=== PATIENT | female | born 1955 | race Caucasian/White ===

== ENCOUNTER → 2017-01-05 | Outpatient (CLI) | payer OTHER ==
[~2017-01-05] MED LIST: ADVIL LIQUI-GE200 MG; ANASTROZOLE1 M1 PO; ARMOUR THYROID30 M1 PO; BACLOFEN10 MG PO; CALCIUM LACTAT650 MG PO; CARAFATE1 G1 PO; CIPROFLOXACIN250 MG PO; CLINDAMYCIN150 MG; CORDROL20 MG PO; LEVOFLOXACIN500 MG PO; LEXAPRO10 MG PO; LITHIUM CARBON150 MG PO; LITHIUM CARBON300 MG PO; LORAZEPAM0.5 MG; NEURONTIN300 MG PO; NEURONTIN600 MG PO; OMEPRAZOLE40 MG PO; OXYBUTYNIN10 MG PO; PRILOSEC20 MG PO; PROVENTIL0.09 MG/A1 INH; PROVENTIL0.09 MG/AC IH; ROBITUSSIN AC 10 MG/ PO; SINGULAIR10 MG PO; ZOLOFT100 MG PO
[2017-01-05 13:19] LABS: BASO % 0.4 % (0.0-1.0); EOS # 0.1 10*3/uL (0.0-0.4); EOS % 1.9 % (1.0-4.0); HEMATOCRIT 39.4 % (37.0-47.0); HEMOGLOBIN 12.3 g/dl (12.0-16.0); LYMPH # 1.4 10*3/uL (1.3-4.4); LYMPH % 20.9 % (27.0-41.0); MEAN CELL VOLUME 87.2 fl (81.0-99.0); MEAN CORPUSCULAR HGB 27.2 pg (27.0-31.0); MEAN CORPUSCULAR HGB CONC 31.2 g/dl (33.0-37.0); MEAN PLATELET VOLUME 9.5 fl (9.6-12.3); MONO # 0.5 10*3/uL (0.1-1.0); MONO % 6.7 % (3.0-9.0); NEUT # 4.8 10*3/uL (2.3-7.9); NEUT % 69.5 % (47.0-73.0); PLATELET COUNT AUTOMATED 298 10*3/uL (130-400); RED BLOOD COUNT 4.52 10*6/uL (4.10-5.10); RED CELL DISTRI WIDTH 13.8 % (0-14.5); WHITE BLOOD COUNT 6.9 10*3/uL (4.8-10.8)
== END | disposition home or self-care (01) ==
LOC: LAB 12:48
PROVIDERS: Family Medicine
DX: R05 Cough (principal); Z87.09 Personal history of other diseases of the respiratory system

== ENCOUNTER → 2017-06-21 | Outpatient (CLI) | payer OTHER | LOC: US 11:41 | DX: N32.89 Other specified disorders of bladder (principal); R11.2 Nausea with vomiting, unspecified; K59.00 Constipation, unspecified; Z85.3 Personal history of malignant neoplasm of breast; Z90.13 Acquired absence of bilateral breasts and nipples ==

== ENCOUNTER → 2018-02-07 | Outpatient (CLI) | payer OTHER ==
[2018-02-07 12:15] LABS: BASO % 0.4 % (0.0-1.0); EOS # 0.1 10*3/uL (0.0-0.4); EOS % 2.1 % (1.0-4.0); HEMATOCRIT 33.5 % (37.0-47.0); HEMOGLOBIN 9.6 g/dl (12.0-16.0); LYMPH # 0.8 10*3/uL (1.3-4.4); LYMPH % 16.4 % (27.0-41.0); MEAN CELL VOLUME 79.6 fl (81.0-99.0); MEAN CORPUSCULAR HGB 22.8 pg (27.0-31.0); MEAN CORPUSCULAR HGB CONC 28.7 g/dl (33.0-37.0); MEAN PLATELET VOLUME 9.8 fl (9.6-12.3); MONO # 0.4 10*3/uL (0.1-1.0); MONO % 7.3 % (3.0-9.0); NEUT # 3.5 10*3/uL (2.3-7.9); NEUT % 73.4 % (47.0-73.0); PLATELET COUNT AUTOMATED 307 10*3/uL (130-400); RED BLOOD COUNT 4.21 10*6/uL (4.10-5.10); RED CELL DISTRI WIDTH 16.8 % (0-14.5); WHITE BLOOD COUNT 4.8 10*3/uL (4.8-10.8)
[2018-02-07 12:28] LABS: BILIRUBIN, DIRECT < 0.1 mg/dL (0.0-0.2); BUN 7 mg/dl (7-24); CHLORIDE 112 mmol/L (98-107); CHOLESTEROL 237 mg/dL (<200); CREATININE 0.87 mg/dL (0.55-1.02); POTASSIUM 3.7 mmol/L (3.5-5.1); SGOT/AST 10 IU/L (3-35); SGPT/ALT 14 U/L (12-78); SODIUM 142 mmol/L (136-145); THYROXINE (T4) TOTAL 9.8 ug/dl (4.8-13.9); TOTAL PROTEIN 7.7 gm/dL (6.4-8.2); TRIGLYCERIDES 201 mg/dl (<150); VLDL CHOLESTEROL 40 mg/dL (6-40)
[2018-02-07 12:38] LABS: ALKALINE PHOSPHATASE 88 U/L (45-117); HDL CHOLESTEROL 61 mg/dl (40-60); LDL CHOLESTEROL 136 mg/dL (9-159)
== END | disposition home or self-care (01) ==
LOC: RAD 11:00 → LAB 11:04
PROVIDERS: Family Medicine
DX: E03.9 Hypothyroidism, unspecified (principal); R07.9 Chest pain, unspecified; M81.0 Age-related osteoporosis without current pathological fracture; R10.9 Unspecified abdominal pain; R42 Dizziness and giddiness

== ENCOUNTER → 2018-05-26 | Day surgery (SDC) | payer OTHER ==
[~2018-05-26] VITALS: Ht 177.8 cm; Wt 58.5 kg
[~2018-05-26] MED LIST changes: +BACLOFEN5 MG PO
--- NOTE | ~2018-05-26 | PROC NOTE ---
[place], [place] PROCEDURE NOTE NAME: MILAN CUNNINGHAM [facility] #: [id number] UNIT #: [id number] ROOM: DOCTOR: NETO HOLBROOK MD BIRTHDATE: [birth year] DOS: PROCEDURES: 1. Esophagogastroduodenoscopy and biopsy. 2. Colonoscopy and polypectomy. INDICATIONS: History of Zaidi's and history of colon polyps and anemia. An informed consent was obtained from the patient after indication of procedures, the alternatives and potential complications were explained to her. PROCEDURE MEDICATION: Sedation was administered by Anesthesiology Department. Scope used for upper endoscopy, Olympus diagnostic adult upper endoscope GIF-180, depth of insertion was to the descending duodenum. With the colonoscopy, the scope used was Olympus pediatric colonoscope variable stiffness GIF-180, depth of insertion was to the cecum, which was identified by the usual landmarks, the appendiceal orifice, ileocecal valve and triangular fold, in addition to transillumination in the right lower quadrant. FINDINGS: After adequate sedation, the patient was placed in left lateral decubitus position. Upper endoscopy was performed first. Scope was introduced under direct visualization through the upper esophageal sphincter into the esophagus. 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 Multiple biopsies obtained from the 27 and 29 cm. A hiatal hernia extended from 29-35 cm. The stomach was then intubated. Gastric mucosa inspected. No abnormalities were seen. No discrete ulcers or active bleeding. Retroflexed views in the fundus showed a grade 2 sliding hiatal hernia. The pylorus was intubated easily. The duodenal bulb and descending duodenum were within normal range. Scope was then withdrawn after the stomach was decompressed. We then proceeded with the colonoscopy. Rectal examination showed diminished sphincter tone and no external hemorrhoids. Scope was introduced into the rectum, then advanced to cecum with marked difficulty due to looping in the left colon and the presence of suboptimal prep in the left colon. A 1.5 cm pedunculated polyp was identified in the mid transverse colon. The polyp was removed with a hot snare and recovered. The remaining colon mucosa appeared otherwise normal with no evidence of diverticula or other polyps or obstructing lesions, we could have missed small lesions due to the suboptimal prep. Retroflexed views in the rectum showed grade 1 internal hemorrhoids. The scope was then withdrawn after the rectum was decompressed. The patient tolerated the procedures well. IMPRESSION: 1. 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 2. Hiatal hernia. 3. Transverse colon polyp, removed. 4. Suboptimal prep in the left colon. 5. Internal hemorrhoids. PLAN: We will review the histopathology and SANG test results and treat the [place], [place] PROCEDURE NOTE [facility] [id number] UN[facility] #: [id number] ROOM: DOCTOR: NETO HOLBROOK MD BIRTHDATE: [birth year] patient accordingly. The patient was instructed to avoid aspirin and NSAIDs for the next 10 days. Office followup will be scheduled in 2-3 weeks. NETO HOLBROOK MD CM:PROCNOTE:PROCEDURE NOTE [id number] NETO HOLBROOK MD
[2018-05-26 08:38] VITALS: BP 127/68
[2018-05-26 09:23] VITALS: BP 99/50
[2018-05-26 09:40] VITALS: BP 105/55
[2018-05-26 09:55] VITALS: BP 108/54
== END | disposition home or self-care (01) ==
LOC: SDC 04-10 12:30
DX: D12.3 Benign neoplasm of transverse colon (principal); K56.2 Volvulus; K64.0 First degree hemorrhoids; K31.7 Polyp of stomach and duodenum; K29.70 Gastritis, unspecified, without bleeding; K44.9 Diaphragmatic hernia without obstruction or gangrene; E07.9 Disorder of thyroid, unspecified; E78.00 Pure hypercholesterolemia, unspecified; K21.9 Gastro-esophageal reflux disease without esophagitis; J44.9 Chronic obstructive pulmonary disease, unspecified; G80.9 Cerebral palsy, unspecified; F41.8 Other specified anxiety disorders; M19.90 Unspecified osteoarthritis, unspecified site; Z85.3 Personal history of malignant neoplasm of breast; Z86.010 Personal history of colon polyps; Z96.652 Presence of left artificial knee joint; Z98.890 Other specified postprocedural states; Z79.899 Other long term (current) drug therapy; Z91.013 Allergy to seafood; Z91.012 Allergy to eggs; Z91.018 Allergy to other foods; Z88.0 Allergy status to penicillin; Z88.8 Allergy status to other drugs, medicaments and biological substances; Z88.1 Allergy status to other antibiotic agents; Z91.041 Radiographic dye allergy status; Z80.0 Family history of malignant neoplasm of digestive organs

== ENCOUNTER → 2018-08-28 | Outpatient (CLI) | payer OTHER ==
[2018-08-28 16:17] LABS: BASO # 0.1 10*3/uL (0.0-0.1); BASO % 0.8 % (0.0-1.0); EOS # 0.1 10*3/uL (0.0-0.4); HEMATOCRIT 35.7 % (37.0-47.0); HEMOGLOBIN 10.7 g/dl (12.0-16.0); LYMPH # 1.3 10*3/uL (1.3-4.4); LYMPH % 21.5 % (27.0-41.0); MEAN CORPUSCULAR HGB 24.3 pg (27.0-31.0); MEAN PLATELET VOLUME 9.3 fl (9.6-12.3); MONO # 0.5 10*3/uL (0.1-1.0); MONO % 7.8 % (3.0-9.0); NEUT # 4.1 10*3/uL (2.3-7.9); NEUT % 67.6 % (47.0-73.0); PLATELET COUNT AUTOMATED 314 10*3/uL (130-400); RED BLOOD COUNT 4.41 10*6/uL (4.10-5.10); RED CELL DISTRI WIDTH 15.5 % (0-14.5)
[2018-08-28 16:45] LABS: ALBUMIN 3.9 gm/dl (3.1-4.5); ALKALINE PHOSPHATASE 80 U/L (45-117); BILIRUBIN, DIRECT < 0.1 mg/dL (0.0-0.2); BUN 14 mg/dl (7-24); CHLORIDE 111 mmol/L (98-107); CREATININE 0.91 mg/dL (0.55-1.02); IRON 22 ug/dL (50-170); POTASSIUM 4.2 mmol/L (3.5-5.1); SGOT/AST 13 IU/L (3-35); SGPT/ALT 16 U/L (12-78); SODIUM 142 mmol/L (136-145); THYROXINE (T4) TOTAL 8.6 ug/dl (4.8-13.9); TOTAL IRON BINDING CAPACITY 517 ug/dl (250-450); TOTAL PROTEIN 7.6 gm/dL (6.4-8.2)
[2018-08-28 16:50] LABS: THYROID STIM HORMONE (HS) 0.439 uIU/ml (0.358-4.75)
[2018-08-28 16:57] LABS: FERRITIN 8.7 ng/mL (10.0-291.0); VITAMIN D, 25-HYDROXY 16.9 ng/mL (30-100)
[2018-08-29 07:10] LABS: FREE T3 010389 3.1 pg/mL (2.0-4.4)
== END | disposition home or self-care (01) ==
LOC: LAB 15:39
PROVIDERS: Family Medicine
DX: E03.9 Hypothyroidism, unspecified (principal); E55.9 Vitamin D deficiency, unspecified; D64.9 Anemia, unspecified

== ENCOUNTER → 2019-01-18 | Outpatient (CLI) | payer OTHER ==
[~2019-01-18] MED LIST changes: +CIPRO500 MG PO; +PHENERGAN25 M3 PO
[2019-01-18 12:44] LABS: CHLORIDE 109 mmol/L (98-107); POTASSIUM 3.9 mmol/L (3.5-5.1); SODIUM 142 mmol/L (136-145)
[2019-01-18 12:49] LABS: BASO % 0.8 % (0.0-1.0); EOS # 0.1 10*3/uL (0.0-0.4); EOS % 1.7 % (1.0-4.0); HEMATOCRIT 41.1 % (37.0-47.0); HEMOGLOBIN 13.2 g/dl (12.0-16.0); LYMPH # 1.2 10*3/uL (1.3-4.4); LYMPH % 22.6 % (27.0-41.0); MEAN CELL VOLUME 94.7 fl (81.0-99.0); MEAN CORPUSCULAR HGB 30.4 pg (27.0-31.0); MEAN CORPUSCULAR HGB CONC 32.1 g/dl (33.0-37.0); MEAN PLATELET VOLUME 9.6 fl (9.6-12.3); MONO # 0.3 10*3/uL (0.1-1.0); MONO % 6.2 % (3.0-9.0); NEUT # 3.6 10*3/uL (2.3-7.9); NEUT % 68.5 % (47.0-73.0); PLATELET COUNT AUTOMATED 280 10*3/uL (130-400); RED BLOOD COUNT 4.34 10*6/uL (4.10-5.10); WHITE BLOOD COUNT 5.3 10*3/uL (4.8-10.8)
[2019-01-18 13:12] LABS: ALBUMIN 3.8 gm/dl (3.1-4.5); ALKALINE PHOSPHATASE 82 U/L (45-117); BILIRUBIN, DIRECT < 0.1 mg/dL (0.0-0.2); BUN 13 mg/dl (7-24); CHOLESTEROL 234 mg/dL (<200); CREATININE 0.96 mg/dL (0.55-1.02); HDL CHOLESTEROL 70 mg/dl (40-60); IRON 52 ug/dL (50-170); LDL CHOLESTEROL 140 mg/dL (9-159); SGOT/AST 14 IU/L (3-35); SGPT/ALT 16 U/L (12-78); THYROXINE (T4) TOTAL 9.6 ug/dl (4.8-13.9); TOTAL IRON BINDING CAPACITY 397 ug/dl (250-450); TOTAL PROTEIN 7.5 gm/dL (6.4-8.2); TRIGLYCERIDES 119 mg/dl (<150); VLDL CHOLESTEROL 24 mg/dL (6-40)
== END | disposition home or self-care (01) ==
LOC: LAB 11:51
PROVIDERS: Family Medicine
DX: D64.9 Anemia, unspecified (principal); E03.9 Hypothyroidism, unspecified; E55.9 Vitamin D deficiency, unspecified

== ENCOUNTER → 2019-02-08 | Outpatient (CLI) | payer OTHER | END | disposition home or self-care (01) | LOC: RAD 01-26 13:30 | DX: Z13.820 Encounter for screening for osteoporosis (principal); R29.890 Loss of height; N95.9 Unspecified menopausal and perimenopausal disorder ==

== ENCOUNTER 2019-02-21 10:44 | Emergency (ER) | payer OTHER ==
[~2019-02-21] VITALS: Wt 57.2 kg
--- NOTE | ~2019-02-21 | EKG ---
[place], [place] ELECTROCARDIOGRAM REPORT NAME: MILAN CUNNINGHAM UNIT #: [id number] ROOM: DOCTOR: INDU DRAFT REPORT BIRTHDATE: [birth year] [facility] Test Date: 2019-02-21 Test Time: 11:23:58 Pat Name: MILAN CUNNINGHAM Department: Room: Gender: F Delivery Route Driver: : [id number] Requested By: DEMETRICE JAIME Order Number: [id number] Reading MD: Gokul Byrd Measurements Intervals [place] Rate: 73 P: 33 WY: 125 QRS: 19 QRSD: 104 T: 28 QT: 427 QTc: 471 Interpretive Statements Sinus rhythm Probable left ventricular hypertrophy Borderline T abnormalities, anterior leads No previous ECG available for comparison Electronically Signed On 02-22-2019 6:10:26 PDT by Gokul Byrd CM:EKGRPT:ELECTROCARDIOGRAM REPORT [id number] DEMETRICE NEELY DRAFT REPORT DEMETRICE JAIME DO
[~2019-02-21 10:44] MED LIST changes: -CIPRO500 MG PO; -PHENERGAN25 M3 PO
[2019-02-21 11:37] LABS: BASO % 0.6 % (0.0-1.0); EOS # 0.1 10*3/uL (0.0-0.4); HEMATOCRIT 37.7 % (37.0-47.0); HEMOGLOBIN 12.5 g/dl (12.0-16.0); LYMPH # 1.1 10*3/uL (1.3-4.4); LYMPH % 20.8 % (27.0-41.0); MEAN CELL VOLUME 92.6 fl (81.0-99.0); MEAN CORPUSCULAR HGB 30.7 pg (27.0-31.0); MEAN CORPUSCULAR HGB CONC 33.2 g/dl (33.0-37.0); MEAN PLATELET VOLUME 9.9 fl (9.6-12.3); MONO # 0.3 10*3/uL (0.1-1.0); MONO % 6.3 % (3.0-9.0); NEUT # 3.6 10*3/uL (2.3-7.9); NEUT % 71.1 % (47.0-73.0); PLATELET COUNT AUTOMATED 312 10*3/uL (130-400); RED BLOOD COUNT 4.07 10*6/uL (4.10-5.10); RED CELL DISTRI WIDTH 13.8 % (0-14.5); WHITE BLOOD COUNT 5.1 10*3/uL (4.8-10.8)
[2019-02-21 11:39] LABS: BILIRUBIN NEGATIVE (NEGATIVE); BLOOD NEGATIVE (NEGATIVE); CLARITY CLEAR (CLEAR); COLOR YELLOW (YELLOW); GLUCOSE NEGATIVE (NEGATIVE); KETONE TRACE (NEGATIVE); LEUKO ESTERASE 2+ (NEGATIVE); NITRITE POSITIVE (NEGATIVE); UROBILINOGEN 0.2 E.U./dl (0.2-1.0)
[2019-02-21 11:52] LABS: ALBUMIN 3.8 gm/dl (3.1-4.5); ALKALINE PHOSPHATASE 119 U/L (45-117); BUN 14 mg/dl (7-24); CHLORIDE 115 mmol/L (98-107); CREATININE 0.85 mg/dL (0.55-1.02); LIPASE 155 U/L (73-393); POTASSIUM 4.3 mmol/L (3.5-5.1); SGOT/AST 27 IU/L (3-35); SGPT/ALT 18 U/L (12-78); SODIUM 145 mmol/L (136-145); TOTAL PROTEIN 7.3 gm/dL (6.4-8.2)
[2019-02-21 12:00] LABS: ACT PARTIAL THROMBO TIME 26.6 SECONDS (20.0-32.1)
[2019-02-21 12:01] LABS: BACTERIA 3+; EPITHELIAL CELLS 0-2; WBC 21-30 wbc/hpf (0-5)
[2019-02-21 12:15] LABS: TROPONIN I < 0.015 ng/ml (<0.045)
[2019-02-21] MEDS ORDERED: PHENERGAN25 M3 PO (13:56)
[2019-02-21] MEDS ORDERED: CIPRO500 MG PO (13:56)
== END 2019-02-21 14:15 | disposition home or self-care (01) ==
LOC: ED 10:44
PROVIDERS: Emergency Medicine
DX: S30.0XXA Contusion of lower back and pelvis, initial encounter (principal); N39.0 Urinary tract infection, site not specified; R11.2 Nausea with vomiting, unspecified; J44.9 Chronic obstructive pulmonary disease, unspecified; K21.9 Gastro-esophageal reflux disease without esophagitis; E03.9 Hypothyroidism, unspecified; G62.9 Polyneuropathy, unspecified; Z88.0 Allergy status to penicillin; Z88.8 Allergy status to other drugs, medicaments and biological substances; Z91.041 Radiographic dye allergy status; Z91.013 Allergy to seafood; Z91.018 Allergy to other foods; Z91.012 Allergy to eggs; Z79.899 Other long term (current) drug therapy; Z98.890 Other specified postprocedural states; W18.11XA Fall from or off toilet without subsequent striking against object, initial encounter; Y93.89 Activity, other specified; Y92.091 Bathroom in other non-institutional residence as the place of occurrence of the external cause; Y99.8 Other external cause status

== ENCOUNTER → 2019-03-15 | Outpatient (CLI) | payer OTHER ==
[~2019-03-15] MED LIST changes: +CIPRO500 MG PO; +PHENERGAN25 M3 PO
== END | disposition home or self-care (01) ==
LOC: MRI 10:55
DX: S32.19XD Other fracture of sacrum, subsequent encounter for fracture with routine healing (principal); X58.XXXD Exposure to other specified factors, subsequent encounter

== ENCOUNTER → 2019-12-05 | Outpatient (CLI) | payer MEDICARE ==
[2019-12-05 12:09] LABS: BASO % 0.5 % (0.0-1.0); EOS # 0.2 10*3/uL (0.0-0.4); EOS % 2.5 % (1.0-4.0); HEMATOCRIT 37.3 % (37.0-47.0); LYMPH # 0.8 10*3/uL (1.3-4.4); LYMPH % 13.2 % (27.0-41.0); MEAN CELL VOLUME 93.5 fl (81.0-99.0); MEAN CORPUSCULAR HGB 29.3 pg (27.0-31.0); MEAN CORPUSCULAR HGB CONC 31.4 g/dl (33.0-37.0); MEAN PLATELET VOLUME 9.4 fl (9.6-12.3); MONO # 0.4 10*3/uL (0.1-1.0); MONO % 5.5 % (3.0-9.0); NEUT # 4.9 10*3/uL (2.3-7.9); NEUT % 78.1 % (47.0-73.0); PLATELET COUNT AUTOMATED 256 10*3/uL (130-400); RED BLOOD COUNT 3.99 10*6/uL (4.10-5.10); RED CELL DISTRI WIDTH 13.3 % (0-14.5); WHITE BLOOD COUNT 6.3 10*3/uL (4.8-10.8)
[2019-12-05 12:39] LABS: ALBUMIN 3.6 gm/dl (3.1-4.5); ALKALINE PHOSPHATASE 72 U/L (45-117); BILIRUBIN, DIRECT < 0.1 mg/dL (0.0-0.2); BUN 13 mg/dl (7-24); CHLORIDE 106 mmol/L (98-107); CREATININE 0.81 mg/dL (0.55-1.02); POTASSIUM 4.2 mmol/L (3.5-5.1); SGOT/AST 15 IU/L (3-35); SGPT/ALT 18 U/L (12-78); SODIUM 141 mmol/L (136-145); THYROXINE (T4) TOTAL 8.7 ug/dl (4.8-13.9); TOTAL PROTEIN 7.1 gm/dL (6.4-8.2)
[2019-12-05 12:47] LABS: THYROID STIM HORMONE (HS) 0.389 uIU/ml (0.358-4.75)
== END | disposition home or self-care (01) ==
LOC: LAB 11:40
PROVIDERS: Family Medicine
DX: S40.011A Contusion of right shoulder, initial encounter (principal); M47.812 Spondylosis without myelopathy or radiculopathy, cervical region; M48.02 Spinal stenosis, cervical region; M25.78 Osteophyte, vertebrae; M19.011 Primary osteoarthritis, right shoulder; M25.711 Osteophyte, right shoulder; E55.9 Vitamin D deficiency, unspecified; R53.83 Other fatigue; E78.5 Hyperlipidemia, unspecified; W19.XXXA Unspecified fall, initial encounter; Y93.89 Activity, other specified; Y92.89 Other specified places as the place of occurrence of the external cause; Y99.8 Other external cause status

== ENCOUNTER 2020-03-06 11:34 | Inpatient (IN) | payer OTHER ==
[~2020-03-06] VITALS: Ht 149.9 cm; Wt 53.1 kg
[2020-03-06 11:34] VITALS: BP 144/79
[~2020-03-06 11:34] MED LIST changes: +PROVENTIL HFA6.7 GM INH; -PROVENTIL0.09 MG/A1 INH; +SINGULAIR10 M1 PO; -SINGULAIR10 MG PO
[2020-03-06 12:24] LABS: BASO % 0.4 % (0.0-1.0); EOS % 0.7 % (1.0-4.0); LYMPH # 0.5 10*3/uL (1.3-4.4); MEAN CELL VOLUME 82.9 fl (81.0-99.0); MEAN CORPUSCULAR HGB 24.6 pg (27.0-31.0); MEAN CORPUSCULAR HGB CONC 29.7 g/dl (33.0-37.0); MEAN PLATELET VOLUME 9.3 fl (9.6-12.3); MONO # 0.2 10*3/uL (0.1-1.0); MONO % 4.4 % (3.0-9.0); NEUT # 3.8 10*3/uL (2.3-7.9); NEUT % 84.3 % (47.0-73.0); PLATELET COUNT AUTOMATED 251 10*3/uL (130-400); RED BLOOD COUNT 3.74 10*6/uL (4.10-5.10); WHITE BLOOD COUNT 4.5 10*3/uL (4.8-10.8)
[2020-03-06 12:36] LABS: ACT PARTIAL THROMBO TIME 26.2 SECONDS (20.0-32.1)
[2020-03-06 12:39] LABS: ALBUMIN 3.4 gm/dl (3.1-4.5); ALKALINE PHOSPHATASE 70 U/L (45-117); BUN 21 mg/dl (7-24); CHLORIDE 110 mmol/L (98-107); CREATININE 1.33 mg/dL (0.55-1.02); POTASSIUM 3.6 mmol/L (3.5-5.1); SGOT/AST 14 IU/L (3-35); SGPT/ALT 14 U/L (12-78); SODIUM 142 mmol/L (136-145); TOTAL PROTEIN 7.3 gm/dL (6.4-8.2)
[2020-03-06 12:40] VITALS: BP 150/75
[2020-03-06 12:44] LABS: ETHYL ALCOHOL < 3.0 mg/dl (<3)
[2020-03-06 14:29] LABS: BILIRUBIN NEGATIVE (NEGATIVE); CLARITY SL CLOUDY (CLEAR); COLOR YELLOW (YELLOW); GLUCOSE NEGATIVE (NEGATIVE); KETONE NEGATIVE (NEGATIVE)
[2020-03-06 14:30] LABS: BACTERIA 2+; BLOOD 1+ (NEGATIVE); LEUKO ESTERASE 2+ (NEGATIVE); NITRITE NEGATIVE (NEGATIVE); PH 7.5 (5.0-9.0); SPECIFIC GRAVITY 1.005 (1.005-1.030); UROBILINOGEN 0.2 E.U./dl (0.2-1.0); WBC TNTC wbc/hpf (0-5)
[2020-03-06 16:30] VITALS: BP 118/62
[2020-03-06 20:00] VITALS: BP 110/49
[2020-03-07] VITALS: BP 126/78
[2020-03-07 06:52] LABS: BASO % 0.3 % (0.0-1.0); EOS # 0.1 10*3/uL (0.0-0.4); EOS % 2.5 % (1.0-4.0); HEMATOCRIT 30.4 % (37.0-47.0); LYMPH % 28.4 % (27.0-41.0); MEAN CORPUSCULAR HGB 25.1 pg (27.0-31.0); MEAN CORPUSCULAR HGB CONC 28.9 g/dl (33.0-37.0); MEAN PLATELET VOLUME 9.9 fl (9.6-12.3); MONO # 0.3 10*3/uL (0.1-1.0); MONO % 9.1 % (3.0-9.0); NEUT # 2.2 10*3/uL (2.3-7.9); NEUT % 59.1 % (47.0-73.0); PLATELET COUNT AUTOMATED 233 10*3/uL (130-400); RED CELL DISTRI WIDTH 14.4 % (0-14.5); WHITE BLOOD COUNT 3.6 10*3/uL (4.8-10.8)
[2020-03-07 06:56] LABS: MEAN CELL VOLUME 86.9 fl (81.0-99.0)
[2020-03-07 06:58] LABS: ALBUMIN 2.7 gm/dl (3.1-4.5); CREATININE 1.17 mg/dL (0.55-1.02); POTASSIUM 3.6 mmol/L (3.5-5.1); TOTAL PROTEIN 6.1 gm/dL (6.4-8.2)
[2020-03-07 06:59] LABS: FREE T4 1.02 ng/dl (0.76-1.46)
[2020-03-07 07:03] LABS: THYROID STIM HORMONE (HS) 1.13 uIU/ml (0.358-4.75)
[2020-03-07 08:00] VITALS: BP 126/61
[2020-03-07 09:30] LABS: VITAMIN D, 25-HYDROXY 28.6 ng/mL (30-100)
[2020-03-07 12:00] VITALS: BP 114/57
[2020-03-07 16:00] VITALS: BP 104/48
[2020-03-07 20:00] VITALS: BP 109/54
[2020-03-08] VITALS: BP 121/61
[2020-03-08 06:13] LABS: BASO % 0.3 % (0.0-1.0); EOS # 0.1 10*3/uL (0.0-0.4); EOS % 3.1 % (1.0-4.0); HEMATOCRIT 27.5 % (37.0-47.0); LYMPH # 0.9 10*3/uL (1.3-4.4); LYMPH % 24.8 % (27.0-41.0); MEAN CELL VOLUME 85.7 fl (81.0-99.0); MEAN CORPUSCULAR HGB 24.6 pg (27.0-31.0); MEAN CORPUSCULAR HGB CONC 28.7 g/dl (33.0-37.0); MEAN PLATELET VOLUME 9.9 fl (9.6-12.3); MONO # 0.4 10*3/uL (0.1-1.0); NEUT # 2.2 10*3/uL (2.3-7.9); NEUT % 61.5 % (47.0-73.0); PLATELET COUNT AUTOMATED 221 10*3/uL (130-400); RED BLOOD COUNT 3.21 10*6/uL (4.10-5.10); RED CELL DISTRI WIDTH 14.6 % (0-14.5); WHITE BLOOD COUNT 3.5 10*3/uL (4.8-10.8)
[2020-03-08 06:14] LABS: BUN 16 mg/dl (7-24); CHLORIDE 117 mmol/L (98-107); CREATININE 1.09 mg/dL (0.55-1.02); SODIUM 145 mmol/L (136-145)
[2020-03-08 08:00] VITALS: BP 120/72
[2020-03-08] MEDS ORDERED: LEVAQUIN500 M2 PO ×2 (12:01→12:03)
== END 2020-03-08 14:28 | disposition home health service (06) | DRG 689 ==
LOC: ED 11:34 → EDHOLD 14:45 → 5E 14:45
PROVIDERS: Emergency Medicine; Hospitalist; Internal Medicine; ADMIT Internal Medicine
DX: N30.01 Acute cystitis with hematuria (principal); N17.0 Acute kidney failure with tubular necrosis; E44.0 Moderate protein-calorie malnutrition; F31.5 Bipolar disorder, current episode depressed, severe, with psychotic features; Z68.1 Body mass index [BMI] 19.9 or less, adult; E87.8 Other disorders of electrolyte and fluid balance, not elsewhere classified; J45.909 Unspecified asthma, uncomplicated; E03.9 Hypothyroidism, unspecified; K21.9 Gastro-esophageal reflux disease without esophagitis; D64.9 Anemia, unspecified; R73.9 Hyperglycemia, unspecified; G80.4 Ataxic cerebral palsy; E86.0 Dehydration; R33.9 Retention of urine, unspecified; B95.4 Other streptococcus as the cause of diseases classified elsewhere; G62.9 Polyneuropathy, unspecified; F43.10 Post-traumatic stress disorder, unspecified; Z91.041 Radiographic dye allergy status; Z91.012 Allergy to eggs; Z88.0 Allergy status to penicillin; Z91.013 Allergy to seafood; J44.9 Chronic obstructive pulmonary disease, unspecified; W18.30XA Fall on same level, unspecified, initial encounter; Y93.89 Activity, other specified; Y92.89 Other specified places as the place of occurrence of the external cause; Y99.8 Other external cause status

== ENCOUNTER 2020-03-08 13:14 | Inpatient (IN) | payer OTHER ==
[~2020-03-08] VITALS: Ht 149.8 cm; Wt 53.1 kg
[~2020-03-08 13:14] MED LIST changes: +LEVAQUIN500 M2 PO
--- NOTE | 2020-03-08 14:30 | NUR ---
MILAN CUNNINGHAM a 64 year old F admitted via wheel chair from the ADMITTING as a voluntary admission. Arrived on unit at 1430. ALLERGIES: PCN, Z-PACK, IODINE, SHELL FISH, EGGS, MUSHROOMS AND STRAWBERRIES. Vital signs are: 97.7-100-16 127/72. The client signed the following forms with stated understanding: Authorization For The Release of Medical Information, Clothing List, Consent to Voluntary Admission and Hospitalization, Consent and Release Forms/Receipt of Rights, Acknowledgement of Advance Directive Information, Behavioral Health Consent Form, and Informed Consent of Medications. Admitted under the services of [facility]. A search was conducted and hazardous articles were removed. Client was oriented to the unit. BULL BRAVO
[2020-03-08 14:45] VITALS: BP 127/72
--- NOTE | 2020-03-08 15:01 | NUR ---
SPOKE TO , MADE AWARE OF NEW CONSULT FOR MEDICAL MANAGEMENT.
--- NOTE | 2020-03-08 15:25 | NUR ---
NASAL SWAB SPECIMEN COLLECTED FOR COVID 19 AND SENT TO LAB.
--- NOTE | 2020-03-08 16:16 | NUR ---
Shift chart check completed.
--- NOTE | 2020-03-08 16:16 | NUR ---
Shift chart check completed.
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
--- NOTE | 2020-03-08 19:48 | NUR ---
NOTIFIED BULL CHAVEZ, SENIOR RESEARCH PROJECT MANAGER OF ADMISSION, VOICE MAILL LEFT.
[2020-03-08 19:50] VITALS: BP 119/63
--- NOTE | 2020-03-08 21:46 | NUR ---
24 HR chart check completed.
--- NOTE | 2020-03-08 21:55 | NUR ---
PT HAS SAT IN THE DINING ROOM THIS EVENING WATCHING TV & TALKING TO ANOTHER PEER. INTERACTIONS HAVE BEEN PLEASANT & POLITE. STATED THAT SHE IS "FEELING BETTER. ALERT & ORIENTED X 4. NO DELUSIONS VOICED. STATED THE AUDITORY & VISUAL HALLUCINATIONS HAVE DECREASED GREATLY & SHE DID NOT DESCRIBE ANY. STATED, "I THINK THEY ARE FROM THE UTI & ITS GETTING BETTER WITH THE MEDICINE THEY PUT ME ON". NO SIGNS/SYMPTOMS OF SENSORY DISTURBANCE NOTED. ATE SNACK. COMPLIANT WITH ALL MEDS. C/O CONSTIPATION & MEDICATED WITH MOM 30 CC @ 2054. MOVES ABOUT THE UNIT INDEPENDENTLY VIA WHEEL CHAIR. DOES REQUIRE 2 STAFF ASSIST FOR TRANSFERS & ASSISTS WITH TOILETING BY HOLDING HAND RAIL.
--- NOTE | 2020-03-08 23:35 | NUR ---
DR BILLS ON UNIT TO SEE PT FOR MEDICAL CONSULT.
[2020-03-09 07:44] VITALS: BP 135/70
--- NOTE | 2020-03-09 09:45 | NUR ---
DR. JAIME ON UNIT TO ASSESS PT, UPDATE PROVIDED.
--- NOTE | 2020-03-09 12:35 | NUR ---
A&O X4. MOOD IS HOPELESS/HELPLESS. CALM AND INTERACTIVE BEHAVIOR. DENIESS HALLUCINATIONS AND DELUSIONS. DENIES SI/HI. PT STATES SHE IS "A LITTLE" SAD AND DEPRESSED. ENCOURAGED PT TO DO MUCH FOR HERSELF SINCE SHE IS FROM HOME. PT STATED SHE TOILETS HERSELF AT HOME. PT ASKED IF A STAFF MEMBER WANTED TO WIPE HER AFTER TOILETING. AGAIN ENCOURAGED PT TO COMPLETE ALL THE ADLS THAT SHE CAN TO KEEP HER STRENGTH UP. PT REQUIRES MUCH ENCOURAGEMENT TO DO DO SO. INAPPROPRIATE LAUGHTER NOTED DURING TOILETING. MOM PROVIDED TO THE PT SHE STATED SHE IS HAVING A HARD TIME GETTING HER BM OUT. PT STATED "OH MAN I HAVE HEARTBURN THAT HASNT MADE IT TO MY ANUS YET" IN AN INAPPROPRIATE VOICE. PT ENCOURAGED NOT TO FORCE HERSELF TO HAVE A BOWEL MOVEMENT. EDUCATED ON POSSIBLE CONSEQUENCES OF FORCING A BOWEL MOVEMENT. MEDICATION COMPLIANT WITHOUT DIFFICULTY. WILL CONTINUE TO ENCOURAGE PT TO COMPLETE ADLS FOR HERSELF AND WILL MONITOR BEHAVIORS WITH Q15 MINUTE SAFETY CHECKS. SEE [facility] FLOWSHEET FOR SPECIFIC MONITORING.
--- NOTE | 2020-03-09 14:25 | NUR ---
PSYCHOSOCIAL HX COMPLETED THIS DATE.
--- NOTE | 2020-03-09 19:53 | NUR ---
24 HR chart check completed.
[2020-03-09 20:00] VITALS: BP 128/68
--- NOTE | 2020-03-09 21:41 | NUR ---
PT HAS SAT IN THE DINING ROOM THIS EVENING WATCHING TV & TALKING TO ANOTHER PEER & LAUGHING APPROPRIATELY. INTERACTIONS HAVE BEEN PLEASANT & POLITE. CONTINUES TO STATED THAT SHE IS "FEELING BETTER." ALERT & ORIENTED X 4. NO DELUSIONS VOICED. DENIES ANY SENSORY DISTURBANCE & NONE HAS BEEN NOTED. ATE SNACK. COMPLIANT WITH ALL MEDS. MOVES ABOUT THE UNIT INDEPENDENTLY VIA WHEEL CHAIR. DOES REQUIRE 2 STAFF ASSIST FOR TRANSFERS & ASSISTS WITH TOILETING. HAS ATTEMPTED TO HELP HERSELF MORE WITH TOILETING & TRANSFERS. HAS BEEN CONTINENT OF BLADDER THUS FAR.
--- NOTE | 2020-03-10 06:29 | NUR ---
PT HAS SLEPT PAST 2200 WITH 2 BRIEF AWAKENINGS DUE TO BEING INCONTINENT OF URINE.
[2020-03-10 07:20] VITALS: BP 131/66
--- NOTE | 2020-03-10 07:50 | NUR ---
PHYSICAL THERAPY Screen and PT orders received, will follow. Thank you. Clark Barcenas SPT Bethany Hawk PT
--- NOTE | 2020-03-10 07:53 | NUR ---
Occupational therapy order and nursing screen received. Will follow up with patient for completion of an OT evaluation. Thank you. Velma De Leon, OTR/L
--- NOTE | 2020-03-10 07:56 | NUR ---
A&O X4. STABLE MOOD AT THIS TIME. ORGANIZED THOUGHTS. INTERACTIVE WITH STAFF AND PEERS. DENIES HALLUCINATIONS/DELUSIONS. DENIES SI/HI. PT STATED SHE FEELS BETTER THAN SHE DID AT ADMISSION. NO COMPLAINTS NTOED AT THIS TIME. MEDICATION COMPLIANT WITHOUT DIFFICULTY. MEDICATION EDUCATION PROVIDED. NO C/O PAIN AT THIS TIME. RESPIRATIONS EASY NON LABORED. Q 15 MINUTE SAFETY CHECKS MAINTAINED. 1:1 PROVIDED FOR THERAPEUTIC COMMUNICATION. SEE [facility] FLOWSHEET FOR SPECIFIC MONITORING. WILL CONTINUE TO MONITOR BEHAVIORS WITH Q15 MINUTE SAFETY CHECKS. CONTINUE TO ENCOURAGE PT TO COMPLETE ADLS WHILE HERE.
--- NOTE | 2020-03-10 08:50 | NUR ---
PHYSICAL THERAPY Physical Therapy evaluation completed on 3N with full evaluation to follow. Moderate complexity skilled PT evaluation per chart review and evaluation, 00500. Recommend physical therapy per plan of care and SNF upon discharge. Thank you for this referral. Alexandra Plata,PT,DPT
--- NOTE | 2020-03-10 08:50 | NUR ---
Occupational Therapy evaluation completed on three with full evaluation to follow. Recommend occupational therapy per plan of care and SNF upon discharge. Thank you for this referral. Velma De Leon OTR/L
--- NOTE | 2020-03-10 11:15 | NUR ---
Faxed admission clinical to [facility], awaiting response.
--- NOTE | 2020-03-10 12:22 | NUR ---
Treatment team meeting held this AM with Dr Chavira, MEDICAL MANAGEMENT SPECIALIST, RN, and this TELEX OPERATOR-S. Discussed pt's status. Tentative discharge day will be at end of the week. Pt to return home where she resides with her mother and brother.
--- NOTE | 2020-03-10 14:04 | NUR ---
SPEECH PATHOLOGY Clinical swallowing evaluation completed due to difficulty swallowing food. Medical history is significant for bipolar disorder, asthma, COPD, breast CA, CP, GERD, hypothyroid, neuropathy. Patient is ordered a regular diet and thin liquid. She reported difficulty swallowing dry food and occasionally coughing with water. She was seen this pm, alert, cooperative and aware of her deficits. Oral peripheral exam revealed presence of natural teeth. Lingual/labial and buccal skills were WNL in terms of strength, ROM and coordination. Volitional cough was weak. Patient was assessed with thin liquid and coarse solid. Patient tolerated solid with no overt difficulty. Patient took liquid by straw and was observed to cough with first sip only, however patient started to laugh before swallowing the liquid which may have led to coughing episode. Recommend patient remain on regular diet and liquid with use of safety precautions such as small bites/sips, eating slowly, limiting distractions when eating/drinking and taking breaks when eating if SOB as she reported this occurring at times. Patient and her nurse were educated on results and chace. and verbalized understanding. Follow up therapy will be conducted short term to ensure safe tolerance of diet and adherence to precautions. Refer to report in [employer] for further information. Thank you for this referral. KEELY GARVIN MSCCC-FABRIC CUTTER
--- NOTE | 2020-03-10 14:08 | NUR ---
Met with pt individually. Pt reports to feeling much better. Discussed discharge needs and the recommendation of SNF. Pt stated that she is not interested in a SNF but would like [facility] for PT/OT. Pt shared about living with her mom and brother and about her dog. Pt was appropriate in conversation. No hallucintions or delusions were observed by this senior copywriter.
--- NOTE | 2020-03-10 14:49 | NUR ---
PT SHOWERED TODAY WITH MAXIMUM ASSISTANCE. PT GIVEN SIMPLE INSTRUCTIONS FOR WASHING HAIR, WASHING OFF, DRYING OFF, GETTING DRESSED. PT GIVEN MANY PROMPTS ABOUT WASHING ALL OF HER HAIR AND NOT JUST THE TOP PORTION. PT UNABLE TO PUT SOCKS, UNDERPANTS, AND PANTS ON. PT UNABLE TO STAND UP BY SELF. PT GIVEN INSTRUCTIONS TO STAND TALL AND NOT DROP TO THE FLOOR, PT STATED "SOMETIMES I JUST DO." PT STATED AT HOME SHE DOES THESE THINGS BY HERSELF BUT IS UNABLE TO COMPLETE THEM HERE. PT STATED SHE LEANS ON THE SINK AND IF SHE FALLS SHE WILL JUST USE HER ARMS AND LIFT HERSELF BACK UP. PT SAID SHE FALLS OFTEN. WHEN PT WAS ASKED HOW OFTEN SHE BATHS HERSELF SHE STATED "WELL WITH ALL THE PEOPLE THAT LIVE IN THE HOUSE I GOT USE TO TAKING SHOWERS EVERY OTHER DAY".
--- NOTE | 2020-03-10 18:00 | NUR ---
PT TOILETED AT THIS TIME. PT NEEDED ENCOURAGEMENT AND MULTIPLE PROMPTS TO STAND UP STRAIGHT AND NOT FALL TO THE FLOOR. PT WAS A HEAVY 2 ASSIST AT THIS TIME. SPOKE TO PT AGAIN ABOUT SKILLED VERSUS HOME HEALTH. PT STATED SHE BELIEVES SHE NEEDS CORRECTION AT THIS TIME WELL.
--- NOTE | 2020-03-10 18:20 | NUR ---
DR GRIMES ON UNIT TO ASSESS PT.
--- NOTE | 2020-03-10 19:37 | NUR ---
24 HR chart check completed.
[2020-03-10 19:49] VITALS: BP 131/80
--- NOTE | 2020-03-10 22:03 | NUR ---
PT HAS SAT IN THE DINING ROOM THIS EVENING WATCHING TV. INTERACTIONS HAVE BEEN PLEASANT & POLITE. CONTINUES TO STATED THAT SHE IS "FEELING BETTER." ALERT & ORIENTED X 4. NO DELUSIONS VOICED. DENIES ANY SENSORY DISTURBANCE & NONE HAS BEEN NOTED. ATE SNACK. COMPLIANT WITH ALL MEDS. MOVES ABOUT UNIT INDEPENDENTLY VIA WHEEL CHAIR. DOES REQUIRE 2 STAFF ASSIST FOR TRANSFERS & ASSISTS WITH TOILETING. REQUIRES PROMPTS & REDIRECTION TO DO WHAT SHE CAN FOR HERSELF. CONTINENT OF BLADDER THUS FAR.
--- NOTE | 2020-03-11 06:02 | NUR ---
PT HAS SLEPT PAST 44 WITH BROKEN SLEEP. INCONTINENT OF URINE X 2. HAS SLEPT APPX 5 HOURS
[2020-03-11 07:36] VITALS: BP 129/70
--- NOTE | 2020-03-11 08:02 | NUR ---
Spoke with pt this AM again about discharge needs. Pt is now agreeable to a SNF prior to returning home. Pt's preference is [facility]. Pt requested that this editorial writer speak to pt's mother to further discuss SNF.
--- NOTE | 2020-03-11 08:04 | NUR ---
Phoned pt's mother Anju Collado for family meeting. Informed Anju that the recommendation is for pt to discharge to a SNF and that pt is willing to do so. Discussed this further. Anju also voiced agreement to this. Anju stated, "Anything that will help Felecia, I am for." Anju stated that they have a system at home that works. Anju denies difficulty in providing care for Felecia. Discussed pt's mental and behavioral status. Reviewed pt's current medications.
--- NOTE | 2020-03-11 08:07 | NUR ---
PASRR submitted to prepare for pt's discharge needs.
--- NOTE | 2020-03-11 08:16 | NUR ---
AEROSOL TX NOT DONE. HEART RATE 117-124, EKG ORDERED TO R/O A/FIB. DOCTOR AND RN NOTIFIED
--- NOTE | 2020-03-11 08:30 | NUR ---
Treatment Plan meeting was held this a.m. with GERSON Holland, RN, TOOL INSPECTOR-S and Ampoule Filler. Plan for discharge at the end of the week, Early next Week. PASRR submitted and Pending. Pt. requesting [facility] for [facility].
--- NOTE | 2020-03-11 10:40 | NUR ---
DR GRIMES AND TEAM ON UNIT TO ASSESS PT, UPDATE PROVIDED.
--- NOTE | 2020-03-11 10:55 | NUR ---
Referral faxed to [facility] Attn: Susan [phone].
--- NOTE | 2020-03-11 11:14 | NUR ---
Faxed continued review stay clinical to [facility], awaiting response.
--- NOTE | 2020-03-11 11:47 | NUR ---
Group therapy session this AM with discussion centering around happiness. Pt fully participated and voiced much interest in the topic. Pt was supportive of another patient in group. Handout was provided "What Happy People Know." Pt was appropriate in conversation and did not voice any hallucinations or delusions.
--- NOTE | 2020-03-11 12:22 | NUR ---
SPEECH PATHOLOGY Patient was seen for f/u treatment this date during lunchtime meal. Patient's tray consisted of a variety of food and liquid items. Patient fed herself. She displayed no overt difficulty tolerating any item. Intake was good. Patient reported no recent difficulty swallowing and her nurse confirmed this. Patient displayed good use of safe swallow precautions during the meal such as eating slowly, consuming small bites and sips and alternating consistencies. No SOB was noted or reported. Patient tolerates regular diet and thin liquid therefore it is recommended that she remain on this diet. Patient will be discharged from therapy at this time. Thank you for this referral. It has been a pleasure taking part in this patient's care. KEELY GARVIN MSCCC-HAM ROLLING MACHINE OPERATOR
--- NOTE | 2020-03-11 13:05 | NUR ---
OT NOTE Prior to coming to the floor spoke with pt's nurse and reported that therapy was coming to treat this pt, nurse gave approval. Pt was seen this P.M. 1:1 for 20 minute OT session with RIG SITE ENGINEER and nursing staff present for observation only. Upon arrival pt was sitting upright in the w/c in the dining york. Pt identified by name and and had complaints of pain her stomach which she was unable to describe or rate on 0-10 pain scale. Pt was taken out to the hallway where she completed sit to stand from chair level with Ciro X 2 and use of w/w for UE support. Challenged pt's static standing tolerance needed for increased I in self care tasks and functional transfers and pt was able to tolerate aprox 60 seconds before sitting due to fatigue. While standing pt soiled her depends and pants. Pt was taken to the bathroom where she completed sit to stand from chair level with Ciro X 2 followed by standing pivot from the w/c to the standard commode with modA. Pt's depends and pants were doffed with maxA. While standing during clothing management pt required mod-maxA due to retrograde posture and multiple LOB. Toilet hygiene completed with Ciro while seated. New depends and pants donned with maxA and transferred off standard commode with modA. Standing pivot completed from the standard commode to the w/c with modA. Pt was taken back out to the hallway where pt completed another sit to stand transfer from w/c level with Ciro X 2 and use of w/w for UE support. Again challenged pt's static standing tolerance which she was able to tolerate aprox 90 seconds this attempt. Pt was left sitting upright in the w/c in the dining york under [facility] staff supervision. Continue with rec D/C plan to SNF. ERIC Pacheco
--- NOTE | 2020-03-11 13:13 | NUR ---
PHYSICAL THERAPY TREATMENT TIME: OUT 1:08 PM 25 MINUTES Patient presented to therapy in the activity room and she was identified by name and on wristband. Patient gives informed consent for treatment. Patient has report of abdominal pain. Patient transferred sit t ostand out of wheelchair with MOD A X 1 with verbal cues for pushing off the W/C handles as she stood. Patient required verbal cues for locking knees into extension and upright posture. Patient ambulated 5' x 1 and theh had to sit in W/C. PATIENT HAD TO BE TAKEN TO HER ROOM ALONG WITH JYOTI RICO BECAUSE THE PATIENT ACCIDENTLY URINATED WHILE AMBULATING. This SIFTER OPERATOR assisted JYOTI RICO SHE CHANGED THE PATIENT'S CLOTHES. PATIENT STS OUT OF W/C MOD A X 2. PATIENT SPT TO COMMODE WITH MOD A X 2. PATIENT STS FROM COMMODE MOD A X 2 TO MAX A X 2. PATIENT THEN WAS WHELED OUT INTO HALLWAY WHERE SHE COMPLETED STS OUT OF W/C WITH MOD A X 2. PATIENT AMBULATED WITH WH WALKER 20' X 1 AND THEN HAD TO SIT DUE OT WEAKNESS IN LEs. PATIENT REQUIRED CONSTANT VERBAL CUES FOR UPRIGHT POSTURE, PUSHING DOWN ON WALKER, LOCKING KNEES INTO EXTENSION AND ADVANCING STEP-LENGTH. PATIENT STS AGAIN OUT OF W/C MOD A X 2. PATIENT AMBULATED 15' X 1 WITH WH WALKER AND THEN AGAIN HAD TO SIT IN W/C DUE TO FATIGUE AND WEAKNESS. PATIENT WAS LEFT IN ACTIVITY ROOM IN W/C WITH ONE RN PRESENT AND 2 OTHER PATIENTS. PATIENT WAS 1:1 WITH THIS SIFTER OPERATOR FOR 25 MINUTES TOTAL. YANNI ROSA SIFTER OPERATOR
--- NOTE | 2020-03-11 13:19 | NUR ---
SPOKE WITH DR BREWSTER AT [phone] RE: PT PREVIOUS 5 BREATHING TREATMENTS BEING HELD D/T ELEVATED HEART RATE, PER DR BREWSTER, SHE WILL ORDER THEM PRN AND WE CAN CALL IF NEEDED. ADVISED RESPIRATORY OF THE CHANGES. NO FURTHER ORDERS AT THIS TIME.
--- NOTE | 2020-03-11 15:27 | NUR ---
Clinical Documentation faxed to [facility] Attn: Susan.
--- NOTE | 2020-03-11 19:50 | NUR ---
24 HR chart check completed.
[2020-03-11 19:59] VITALS: BP 126/70
--- NOTE | 2020-03-11 21:38 | NUR ---
PT HAS SAT IN THE DINING ROOM TALKING TO ANOTHER FEMALE PEER. INTERACTIONS HAVE BEEN PLEASANT & POLITE. ALERT & ORIENTED X 4. NO DELUSIONS VOICED. DENIES ANY SENSORY DISTURBANCE & NONE HAS BEEN NOTED. ATE SNACK. COMPLIANT WITH ALL MEDS. MOVES ABOUT UNIT INDEPENDENTLY VIA WHEEL CHAIR. DOES REQUIRE 2 STAFF ASSIST FOR TRANSFERS & ASSISTS WITH TOILETING. REQUIRES PROMPTS & REDIRECTION TO DO WHAT SHE CAN FOR HERSELF.INCONTINENT OF BLADDER THUS FAR. SHOWERED THIS EVENING WITH 2 STAFF ASSISTS.
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
--- NOTE | 2020-03-12 05:43 | NUR ---
PT HAS SLEPT PAST 2099 WITH BROKEN SLEEP & 2 AWAKENINGS WHERE SHE WAS INCONTINENT OF URINE.
--- NOTE | 2020-03-12 07:05 | NUR ---
PHYSICAL THERAPY Patient seen this am for therapy visit and was sitting up in activity room w/c upon therapist arrival. Patient identified by name / and and was joined by Hellen SANCHES this morning for observation only. Patient voices no c/o's pain, however presented with increased B LE tightness. Patient performed seated B LE therex, all planes, x 10 reps each, AROM / AAROM, requiring v/c to reach full ROM during LAQ. Patient transfers sit to stand MIN A and ambulates with use of wh walker, CGA, 15'x 1, then additional 6' x 1, demonstrating uneven stride. Patient also demonstrated R foot drag, needing v/c for "marching" technique, including w/c follow secondary to quick onset of fatigue. Patient returned to her w/c in activity room and remained under [facility] staff Supervision, awaiting breakfast. Will continue per POC as tolerated, total treatment time 17 minutes. Garrett Collier, SPECIAL EDUCATION ASSOCIATE
[2020-03-12 07:53] VITALS: BP 114/71
--- NOTE | 2020-03-12 09:00 | NUR ---
Treatment Plan meeting was held this a.m. with Dr. Chavira via telephone, GERSON Holland RN, SPECIAL COLLECTIONS LIBRARIAN-S and Satellite Instruction Facilitator. Plan for discharge Tuesday. Pt. will go to [facility] for SNF. Requires Precert prior to discharge.
--- NOTE | 2020-03-12 10:54 | NUR ---
OT NOTE Prior to coming to the floor spoke with [facility] staff and reported that therapy was coming to treat this pt, staff gave approval. Pt was seen this A.M. 1:1 for 25 minute OT session with nursing staff present for observation only. Upon arrival pt was sitting upright in the w/c in the dining york. Pt identified by name and and had complaints of 9/10 abdominal pain. Pt was taken out to the hallway where she completed multiple sit to stand transfers from chair level with Ciro and use of hand rail for UE support. Challenged pt's static standing tolerance needed for increased I in self care tasks and functional transfers. Pt was able to tolerate aprox 2 minutes at a time before sitting due to fatigue. Throughout static standing pt required verbal prompts for correcting her posture and locking her knees out. While standing pt had soiled her pants. Pt was taken to the bathroom where she completed standing pivot from the w/c to the standard commode with modA. Clothing management completed with maxA and toilet hygiene completed with SBA while seated. Sit to stand completed from the standard commode with modA followed by standing pivot from the commode to the w/c with modA. Pt was then taken back to the dining york where she completed BUE towel exercises over all planes for 1 X 10 with min resistance to increase and restore maximum functional strength. Pt was left sitting upright in the dining york under [facility] staff supervision. Continue with rec D/C plan to SNF. ERIC Pacheco
--- NOTE | 2020-03-12 11:26 | NUR ---
DR. GRIMES ON UNIT TO ASSESS PATIENT.
--- NOTE | 2020-03-12 12:00 | NUR ---
Shift chart check completed.
--- NOTE | 2020-03-12 13:35 | NUR ---
Group therapy this afternoon with the topic of thankfulness. Pt participated and offered her thoughts. Pt was supportive of another pt in group. Hand-out provided "Thank you: The Power of Appreciation." Pt was also provided with a gratitude journal and educated in the benefits of daily use. This insurance underwriter sales did not observe pt voicing any hallucinations or delusions.
--- NOTE | 2020-03-12 14:59 | NUR ---
Spoke to [place] at [facility] to check case status. Case remains pended. Pending auth # [id number]. Call ref # [id number]
--- NOTE | 2020-03-12 18:00 | NUR ---
Shift chart check completed.
--- NOTE | 2020-03-12 18:14 | NUR ---
PATIENT IS ALERT TO PERSON, PLACE, TIME AND SITUATION; ABLE TO VOICE NEEDS. MOOD IS STABLE. DENIES HALLUCINATIONS, DELUSIONS, HI/SI OR PAIN. MEDICATION COMPLAINT WITH EDUCATIONS. Q 15 MINUTE SAFETY CHECKS. ONE PERSON ASSIST WITH ACTIVITIES OF DAILY LIVING, CONTINENT OF BOWEL AND BLADDER. SET UP FOR MEALS, INTAKES ARE GOOD WITH ADEQUATE FLUIDS. AMBULATES WITH STEADY GAIT USING A WALKER. INTERACTIVE WITH NURSES AND OTHER PATIENTS. CONTINUE TO MONITOR FOR HALLUCINATIONS AND DELUSIONS; PROVIDE ONE ON ONE, REDIRECTION AND ORIENTAITON NEEDED. PATIENT WAS NOT PREOCCUPIED WITH BOWEL/BLADDER OR MEDICATIONS TODAY.
[2020-03-12 20:00] VITALS: BP 108/68
--- NOTE | 2020-03-12 22:00 | NUR ---
Patient alert and oriented x4. Mood calm,pleasant and cooperative. Denies any SI/HI,hallucinations or delusions at this time. No overt s/s of any responding to internal stimuli noted at this time. Patient sitting in diningroom interacting with other female patient. Patient compliant with HS medications without any difficulty. Provided 1:1 for emotional support. Plan to continue to encourage medication compliance. Also will continue to provide emotional support. Will continue to monitor moods/behaviors. Q 15 minute safety checks continued and maintained. See [facility] flowsheet for further documentation.
--- NOTE | 2020-03-12 23:05 | NUR ---
Medicated with Tylenol po prn for c/o back discomfort. Will monitor effectiveness.
--- NOTE | 2020-03-13 00:18 | NUR ---
24 HR chart check completed.
--- NOTE | 2020-03-13 05:51 | NUR ---
Patient slept approx. 5 hours of interrupted sleep throughout shift. Q 15 minute safety checks continued and maintained.
[2020-03-13 07:53] VITALS: BP 113/61
--- NOTE | 2020-03-13 07:55 | NUR ---
Patient eating breakfast in dining room with peers. Respirations easy and regular. Vital signs stable. No overt distress. YONATAN LEE
--- NOTE | 2020-03-13 08:00 | NUR ---
on unit to see pt at this time, update given.
--- NOTE | 2020-03-13 08:25 | NUR ---
PHYSICAL THERAPY Patient seen this am for therapy visit and was sitting in activity room w/c at table following breakfast, upon therapist arrival. Patient identified by name / and reporting 7/10 chronic abdominal pain, stating she only ate a little bit of breakfast. OT resident programs assistant was also present this morning for observation as patient was transported via w/c to [facility] for treatment. Patient performed several sit to stand transfers at [facility], demonstrating very slow rise with B UE support. Patient tolerated static stand with increased B knee flexion, needing v/c to improve standing posture. Patient also ambulated with use of walker, [facility], 20'x 1, then additional 10'x 1, demonstrating uneven stride, difficulty with R foot advance and quick onset of fatigue, requiring w/c follow for safety. Patient returned to her w/c in activity room and remained at table under [facility] staff Supervision. Will continue per POC as tolerated, total treatment time 17 minutes. Garrett Collier, TELEMETRY TECH
--- NOTE | 2020-03-13 08:35 | NUR ---
OT NOTE Prior to coming to the floor spoke with [facility] staff and reported that therapy was coming to treat this pt. Pt's nurse gave approval. Pt was seen this A.M. 1:1 for 15 minute OT session with MEDICAL INSURANCE CLAIMS SPECIALIST and nursing staff present for observation only. Upon arrival pt was sitting upright in the w/c in the dining york. Pt identified by name and and had complaints of 7/10 abdominal pain. Pt was taken out to the hallway where she completed multiple sit to stand transfers from chair level with CGA and use of hand rail for UE support. Challenged pt's static standing tolerance needed for increased I in self care tasks and functional transfers. Pt was able to tolerate aprox 90-120 seconds before sitting due to fatigue. Throughout static standing pt required min verbal prompts for correcting her posture and locking her knees out. Pt then completed sit to stand from chair level with Ciro and use of w/w for UE support. Pt was educated on proper hand placement for increased I and improved technique. Challenged pt's static standing balance needed for enhanced safety and increased I, pt was able to maintain F- standing balance throughout. Pt was left sitting upright in the w/c in the dining york under [facility] staff supervision. Continue with rec D/C plan to SNF. JYOTI Pacheco/Janina
--- NOTE | 2020-03-13 08:53 | NUR ---
Treatment Plan meeting was held this a.m. with Dr. Chavira RN, SINGLE END SEWER-S and Licensed And Certified Midwife. Discussed Treatment Plan and Plans for Discharge. Pt. will go to [facility] for SNF. Plan for discharge Tuesday. Precert required Prior to Discharge.
--- NOTE | 2020-03-13 10:31 | NUR ---
IP bryan 03/08-03/12 with a NRD 03/13 per Raya at [facility]. Ref # [id number]
--- NOTE | 2020-03-13 11:45 | NUR ---
Faxed continued review stay clinical to [facility]. Awaiting response.
--- NOTE | 2020-03-13 11:55 | NUR ---
Group discussion today with the topic of simple pleasures in life. Pt participated fully. Pt provided many examples of the simple pleasures that she enjoys in life. Pt was supportive and interactive with her peer. No hallucinations or delusions were voiced by pt while in group.
--- NOTE | 2020-03-13 12:30 | NUR ---
DR. JUAREZ ON UNIT TO ASSESS PATIENT.
--- NOTE | 2020-03-13 13:58 | NUR ---
PATIENT IS ALERT TO PERSON, PLACE, TIME AND SITUATION; ABLE TO VOICE NEEDS. MOOD IS STABLE. DENIES HALLUCINATIONS, DELUSIONS, HI/SI OR PAIN. MEDICATION COMPLAINT WITH EDUCATIONS. Q 15 MINUTE SAFETY CHECKS. ONE PERSON ASSIST WITH ACTIVITIES OF DAILY LIVING, CONTINENT OF BOWEL AND BLADDER WITH EPISODES OF BLADDER INCONTINENCE, SET UP FOR MEALS, INTAKES ARE GOOD WITH ADEQUATE FLUIDS. AMBULATES WITH STEADY GAIT USING A WALKER. INTERACTIVE WITH NURSES AND OTHER PATIENTS. CONTINUE TO MONITOR FOR HALLUCINATIONS AND DELUSIONS; PROVIDE ONE ON ONE, REDIRECTION AND ORIENTAITON NEEDED. PATIENT WAS NOT PREOCCUPIED WITH BOWEL/BLADDER OR MEDICATIONS NOTED.
--- NOTE | 2020-03-13 14:23 | NUR ---
Afternoon activity group of jaclyn. Pt participated and socialized with her peers and staff. No hallucinations or delusions spoken by pt.
--- NOTE | 2020-03-13 14:58 | NUR ---
PATIENT COMPLAINING OF BEING CONSTIPATION, PRN MOM 30ML PO GIVEN ALONG WITH 240CC OF PRUNE JUICE.
--- NOTE | 2020-03-13 15:38 | NUR ---
Shift chart check completed.
--- NOTE | 2020-03-13 18:15 | NUR ---
PATIENT ASSISTED TO BATHROOM FOR TOILETING NEED. BOWEL SOUNDS ACTIVE X 4; PASSING GAS DURING TOILETING NEEDS. CONTINUE TO MONITOR.
[2020-03-13 20:00] VITALS: BP 121/65
--- NOTE | 2020-03-13 21:25 | NUR ---
Patient alert and oriented x4. Mood calm,pleasant,cooperativeand isolative to her room this evening. Denies any SI/HI,hallucinations or delusions at this time. No overt s/s of any responding to internal stimuli noted at this time. Patient compliant with HS medications without any difficulty. Provided 1:1 for emotional support. Plan to continue to encourage medication compliance. Also will continue to provide emotional support. Will continue to monitor moods/behaviors. Q 15 minute safety checks continued and maintained. See [facility] flowsheet for further documentation.
--- NOTE | 2020-03-14 05:58 | NUR ---
Patient slept approx. 7.5 hours of interrupted sleep throughout shift. Q 15 minute safety checks continued and maintained.
[2020-03-14 07:57] VITALS: BP 124/67
--- NOTE | 2020-03-14 09:00 | NUR ---
Treatment Plan meeting was held this a.m. with GERSON Holland RN, OWNER CONSULTING ENGINEER-S and Mixed Crop Farmer. Plan for discharge Tuesday. Pt. will go to [facility] for SNF. Will require Precert. PASRR pending.
--- NOTE | 2020-03-14 10:30 | NUR ---
PHYSICAL THERAPY Patient seen this am for therapy visit and was resting supine in bed upon therapist arrival. Patient identified by name / and was joined by OT intellectual property legal assistant for observation only this session. Patient reports mild chronic abdominal pain with increased constipation and transfers supine to sit EOB with MOD A. Patient needed a minute or so of static EOB sit to collect herself, then completed sit to stand, MIN A, with use of wh walker standing support. Patient ambulated 5'x 1, MIN A, wh walker, demonstrating increased difficulty with R foot advance, increased B knee flexion, POOR standing posture and c/o of increased LE weakness. Patient returned to [facility] for seated rest break and was able to complete sit to stand at rail in hallway, B UE support, MIN A during initial rise then CGA x 1, tolerating approx 1 minute static stand with increased B knee flexion. Patient returned to activity room in / and remained under [facility] staff Supervision, Will continue per POC as tolerated, total treatment time 14 minutes. Garrett Collier, BOAT DECKHAND
--- NOTE | 2020-03-14 11:25 | NUR ---
OT NOTE Pt was seen this A.M. 1:1 for 20 minute OT session. Upon arrival pt was supine in bed. Pt identified by name and and had complaints of abdominal pain which she was unable to rate on 0-10 pain scale. Pt transferred supine to sit EOB with modA for assist with BLE's and upper body. While sitting EOB pt presented with F- static sitting balance due to retrograde posture and L lateral lean. Sit to stand completed from bed level with Ciro X 2 and use of w/w for UE support. Functional mobility completed to the w/c with Ciro X 2 and use of w/w, pt was unable to advance RLE. While seated pt completed BUE towel exercises over all planes for 1 X 10 to increase and restore maximum functional use. Then challenged pt's static standing tolerance needed for increased I in self care tasks and functional transfers, pt was able to tolerate aprox 2 minutes at a time before sitting due to fatigue. Pt was left sitting upright in the w/c in the dining york under [facility] staff supervision. Continue with rec D/C plan to SNF. JYOTI Pacheco/Janina
--- NOTE | 2020-03-14 12:29 | NUR ---
ADELAIDE BRICE CNP ON UNIT TO ASSESS PATIENT.
--- NOTE | 2020-03-14 13:49 | NUR ---
PATIENT IS ALERT TO PERSON, PLACE, TIME AND SITUATION; ABLE TO VOICE NEEDS. MOOD IS STABLE. DENIES HALLUCINATIONS, DELUSIONS, HI/SI OR PAIN. MEDICATION COMPLAINT WITH EDUCATIONS. Q 15 MINUTE SAFETY CHECKS. ONE PERSON ASSIST WITH ACTIVITIES OF DAILY LIVING, CONTINENT OF BOWEL AND BLADDER WITH EPISODES OF BLADDER INCONTINENCE, SET UP FOR MEALS, INTAKES ARE GOOD WITH ADEQUATE FLUIDS. INTERACTIVE WITH NURSES AND OTHER PATIENTS. PATIENT HAS UNSTEADY GAIT REQUIRING EXTENSIVE ASSISTANCE WITH TRANSFERS AND AMBULATION WITH AMBULATING WITH WALKER. CONTINUE TO MONITOR FOR HALLUCINATIONS AND DELUSIONS; PROVIDE ONE ON ONE, REDIRECTION AND ORIENTAITON NEEDED. PATIENT WAS NOT PREOCCUPIED WITH BOWEL/BLADDER OR MEDICATIONS NOTED.
--- NOTE | 2020-03-14 13:53 | NUR ---
IP 2 additional days bryan per Norma mackay [facility], LCD 03/14
--- NOTE | 2020-03-14 14:09 | NUR ---
OCCUPATIONAL THERAPY CO-SIGN I approve of the Occupational Therapy notes written above. TOBI FREDERICK, OTR/L
--- NOTE | 2020-03-14 14:13 | NUR ---
PHYSICAL THERAPY CO-SIGN I approve of the Physical Therapy notes written above. Bethany Hawk PT
--- NOTE | 2020-03-14 14:14 | NUR ---
Family meeting held via phone with pt's pwnelwsi-me-rri Enedina and son Carlos. Discussed pt's current status. Discussed pt's discharge needs. Enedina and Carlos are both wanting pt to return home with [facility] for PT/OT instead of SNF. Informed them that this would need to be pt's decision and this rfp writer would meet with pt to discuss. Educated Enedina and Carlos about SNF vs home PT/OT.
--- NOTE | 2020-03-14 14:16 | NUR ---
Met with pt individually to discuss discharge needs. Pt had spoken to Enedina, her [id number] previous to this meeting. Pt stated that she has decided that she wants to return home instead of SNF. Discussed this further and provided pt with pros and cons of each. Pt stated, "I'm just really scared to go to [place] because of COVID and probably not being able to see my family. I want to go home." Pt stated that Enedina told her that they are rearranging the house to make it easier for pt to manuever. Discussed pt completing a DPOAHC. Pt states that she would like to do so. Provided pt with the document and educated her about it. Assisted pt in placing a call to her [id number] so that pt could ask her a question about the DPOAHC. It was decided that pt will read over the document this weekend with a plan to complete it on Tuesday. Left the document with pt.
--- NOTE | 2020-03-14 14:37 | NUR ---
Clinical Updates faxed to [facility].
[2020-03-14 19:39] VITALS: BP 122/82
[2020-03-15 07:46] VITALS: BP 107/53
--- NOTE | 2020-03-15 16:21 | NUR ---
No adverse moods or behaviors this shift. Pt is alert and oriented x4. Memory intact. Resps easy and even on room air. Pt reports feeling "a little sad" d/t missing home. Pt states "I don't want to be here much longer but I know I need more therapy to get my strength up". Emotional support and encouragement provided. Affect is broad range and appropriate. Speech is soft, coherent, able to make needs known without difficulty. Pt denies SI/HI, intent or plan. Pt denies hallucinations, no response to internal stimuli noted. No paranoia or delusions noted. Pt is medication compliant without difficulty. Calm and cooperative with all areas of care. No distress noted. Plan to continue current treatment.
[2020-03-15 19:07] VITALS: BP 128/80
--- NOTE | 2020-03-15 21:56 | NUR ---
Patient alert and oriented x4. Mood calm,pleasant and cooperative. Denies any SI/HI,hallucinations or delusions at this time. No overt s/s of any responding to internal stimuli noted at this time. Patient sitting in diningroom interacting with other patients. Patient compliant with HS medications without any difficulty. Provided 1:1 for emotional support. Plan to continue to encourage medication compliance. Also will continue to provide emotional support. Will continue to monitor moods/behaviors. Q 15 minute safety checks continued and maintained. See [facility] flowsheet for further documentation.
--- NOTE | 2020-03-16 00:07 | NUR ---
24 HR chart check completed.
--- NOTE | 2020-03-16 06:46 | NUR ---
Patient slept approx. 8.5 hours throughout shift. Q 15 minute safety checks continued and maintained.
[2020-03-16 07:24] VITALS: BP 115/70
[2020-03-16 08:38] VITALS: BP 124/68
--- NOTE | 2020-03-16 08:38 | NUR ---
NOTIFIED DR BOJORQUEZ OF PT C/O SOB AND CHEST PRESSURE. VITALS OBTAINED.EKG ORDERED. DR BOJORQUEZ ROUNDED AND SEEN PT.ORDERS RECIEVED.
[2020-03-16 11:33] LABS: BASO % 0.1 % (0.0-1.0); EOS # 0.1 10*3/uL (0.0-0.4); EOS % 1.3 % (1.0-4.0); HEMATOCRIT 29.6 % (37.0-47.0); LYMPH # 0.8 10*3/uL (1.3-4.4); MEAN CELL VOLUME 84.3 fl (81.0-99.0); MEAN CORPUSCULAR HGB 24.5 pg (27.0-31.0); MEAN CORPUSCULAR HGB CONC 29.1 g/dl (33.0-37.0); MEAN PLATELET VOLUME 9.8 fl (9.6-12.3); MONO # 0.4 10*3/uL (0.1-1.0); MONO % 4.8 % (3.0-9.0); NEUT # 6.2 10*3/uL (2.3-7.9); NEUT % 82.5 % (47.0-73.0); PLATELET COUNT AUTOMATED 304 10*3/uL (130-400); RED BLOOD COUNT 3.51 10*6/uL (4.10-5.10); RED CELL DISTRI WIDTH 16.4 % (0-14.5); WHITE BLOOD COUNT 7.5 10*3/uL (4.8-10.8)
[2020-03-16 11:51] LABS: ALBUMIN 3.1 gm/dl (3.1-4.5); CREATININE 1.29 mg/dL (0.55-1.02); POTASSIUM 4.4 mmol/L (3.5-5.1); TOTAL PROTEIN 7.2 gm/dL (6.4-8.2)
--- NOTE | 2020-03-16 16:32 | NUR ---
DR DE LEON NOTIFIED OF NEED FOR ORDERS FOR CTA ALLERGY PREP. ORDERS RECIEVED.
--- NOTE | 2020-03-16 17:48 | NUR ---
IV started right antecubital with #22 protective cath after 1 attempts. Site prepped with Chloroprep. Sterile dressing applied. Patient tolerated procedure well. HEPLOCKED FOR CTA IN ANGEL. ABI ELI
--- NOTE | 2020-03-16 18:24 | NUR ---
NO ADVERSE MOODS OR BEHAVIORS NOTED FOR SHIFT.SITTING UP IN CHAIR IN DINING ROOM AREA WATCHING TV WITH GROUP. RESPS EASY ON RA. VOICES NO NEEDS.WILL CONTINUE TO MONITOR.
[2020-03-16 20:00] VITALS: BP 132/78
--- NOTE | 2020-03-16 21:59 | NUR ---
Patient alert and oriented x4. Mood calm,pleasant,cooperative and isolative to self while in diningroom with other patients. Denies any SI/HI,hallucinations or delusions at this time. No overt s/s of any responding to internal stimuli noted at this time. Patient compliant with HS medications without any difficulty. Provided 1:1 for emotional support. Plan to continue to encourage medication compliance. Also will continue to provide emotional support. Will continue to monitor moods/behaviors. Q 15 minute safety checks continued and maintained. See [facility] flowsheet for further documentation.
--- NOTE | 2020-03-17 05:00 | NUR ---
CT scan called and asked this nurse if the doctor was aware of patient's GFR being 41 and asked if this nurse could call doctor now and ask if they still wanted test. Dr. Gamez said to hold CTA for now until he talks to day shift physician.
--- NOTE | 2020-03-17 05:17 | NUR ---
Called and asked Dr. Gamez regarding am Prilosec and am Baclofen. Asked him if he wants the patient to have them or hold them and keep patient NPO. He said to hold them until he talks to day shift physician.
--- NOTE | 2020-03-17 05:55 | NUR ---
Patient slept approx. 8 hours throughout shift. Q 15 minute safety checks continued and maintained.
[2020-03-17 07:25] VITALS: BP 115/60
--- NOTE | 2020-03-17 08:47 | NUR ---
Pt was seen for 12 minutes in OT beginning at 8:10am. Supine to sit to EOB required Mod A x 2 followed by grooming at edge of bed. Min A to finish combing hair at backside. With set up, patient washed face & applied lotion to hands. Max A transfer to w/c to end session. Continue with OT POC. Malaika KIM
--- NOTE | 2020-03-17 09:00 | NUR ---
Treatment Plan meeting was held this a.m. with Dr. Chavira via telephone, TYPE DISK QUALITY CONTROL SUPERVISOR Amalia, RN, AT, HEAD START COORDINATOR-S and Community Relations Police Lieutenant in attendance. Plan for discharge today. Pt. is scheduled for a VQ scan to rule out PE. If Negative Pt. will return home with Home Health to follow. Pt. choice [facility]. If VQ scan is positive, Pt. will discharge to Hospital for further treatment.
--- NOTE | 2020-03-17 09:22 | NUR ---
PHYSICAL THERAPY Patient seen this am for therapy visit and was resting supine in bed upon therapist arrival. Patient identified by name / and reports being scheduled for a medical test this morning, stating she has increased generalized, global weakness. Patient reports no change in diet / sleeping habits and transfers supine to sit EOB with MOD A x 2, having difficulty sliding legs across bed to sit up. Patient tolerated static EOB sit x 3-4 minutes, CGA/MIN, secondary to several episodes of retrograde posture. Patient also performeed sit to stand transfer, MAX A, with use of wh walker standing support. Patient demonstrates increased B knee flexion, POOR UE support and quick onset of fatigue. Patient performed SPT from EOB to w/c, use of wh walker, MAX A, with increased difficulty navigating walker, including decreased R foot advance. Patient returned to activity room via w/c and remained under [facility] staff Supervision. Will continue per POC as tolerated, total treatment time 13 minutes. Garrett Collier, VALVE PIPE IRRIGATOR
[2020-03-17] MEDS ORDERED: RISPERIDONE0.25 M2 PO (09:28)
[2020-03-17] MEDS ORDERED: MIRTAZAPINE15 M2 PO (09:28)
[2020-03-17] MEDS ORDERED: RISPERIDONE0.5 MG PO (09:28)
[2020-03-17] MEDS ORDERED: VITAMIN D3125 MC1 PO (09:28)
[2020-03-17] MEDS ORDERED: RIVASTIGMINE TAR3 M1 PO (09:33)
--- NOTE | 2020-03-17 09:36 | NUR ---
The patient has no complaints and is resting comfortably. CHEMA SANCHEZ
--- NOTE | 2020-03-17 10:54 | NUR ---
Faxed CCR to [facility], [place] 03/14. Awaiting response.
--- NOTE | 2020-03-17 11:44 | NUR ---
AM GROUP PT ATTENDED MORNING GROUP THERAPY AND PARTICIPATED BY PUTTING TOGETHER A BIRDHOUSE. PT WAS FOCUSED AND ON TASK. PT EXHIBITED NO ADVERSE BEHAVIORS WHILE IN GROUP. PT IS SET TO BE DISCHARGED FROM THE UNIT THIS AFTERNOON.
--- NOTE | 2020-03-17 12:15 | NUR ---
Met with pt this AM individually. Pt reports that she is feeling well and hopeful that she will discharge today. Assisted pt in completing Health Care Power of Video Photographer and Living Will documents. Placed a copy of each on pt's chart. The originals along with copies of each will be given to pt upon her discharge.
--- NOTE | 2020-03-17 13:54 | NUR ---
Orders received From Dr. Chavira for Pt. to have Home Health, Nurse, PT, OT Pt. requests [facility] Therapists.
--- NOTE | 2020-03-17 14:49 | NUR ---
Provided update to pt's [id number]-[id number]-eot/DPOAHC Enedina Short.
--- NOTE | 2020-03-17 14:51 | NUR ---
Referral and Supporting Discharge Documentation and PT/OT notes faxed to [facility].
--- NOTE | 2020-03-17 15:38 | NUR ---
PM GROUP PT WAS UNABLE TO ATTEND AFTERNOON GROUP THERAPY DUE TO BEING OFF THE UNIT FOR TESTING.
[2020-03-17] MEDS ORDERED: XARELTO1 EACH PO (16:17)
--- NOTE | 2020-03-18 07:36 | NUR ---
PHYSICAL THERAPY CO-SIGN I approve of the Physical Therapy notes written above. Bethany Hawk PT
--- NOTE | 2020-03-18 12:57 | NUR ---
OCCUPATIONAL THERAPY CO-SIGN I approve of the Occupational Therapy notes written above. TOBI FREDERICK, OTR/L
--- NOTE | 2020-03-19 14:44 | NUR ---
LCD 03/16. Ref # [id number]. Discharge instructions and summary faxed to [facility].
== END 2020-03-17 17:49 | disposition home health service (06) | DRG 885 ==
LOC: 3N 13:14
PROVIDERS: Internal Medicine; ADMIT Psychiatry & Neurology Psychiatry
DX: F31.5 Bipolar disorder, current episode depressed, severe, with psychotic features (principal); N39.0 Urinary tract infection, site not specified; E44.0 Moderate protein-calorie malnutrition; G31.84 Mild cognitive impairment of uncertain or unknown etiology; E87.8 Other disorders of electrolyte and fluid balance, not elsewhere classified; R73.9 Hyperglycemia, unspecified; R00.0 Tachycardia, unspecified; G80.9 Cerebral palsy, unspecified; J44.9 Chronic obstructive pulmonary disease, unspecified; K21.9 Gastro-esophageal reflux disease without esophagitis; G62.9 Polyneuropathy, unspecified; D64.9 Anemia, unspecified; F43.10 Post-traumatic stress disorder, unspecified; E89.0 Postprocedural hypothyroidism; Z96.652 Presence of left artificial knee joint; Z03.818 Encounter for observation for suspected exposure to other biological agents ruled out; Z91.14 Patient's other noncompliance with medication regimen; Z90.13 Acquired absence of bilateral breasts and nipples; Z92.21 Personal history of antineoplastic chemotherapy; Z85.3 Personal history of malignant neoplasm of breast; Z92.3 Personal history of irradiation; Z80.0 Family history of malignant neoplasm of digestive organs; Z80.1 Family history of malignant neoplasm of trachea, bronchus and lung; Z82.3 Family history of stroke; Z82.49 Family history of ischemic heart disease and other diseases of the circulatory system; Z88.0 Allergy status to penicillin; Z88.8 Allergy status to other drugs, medicaments and biological substances; Z91.018 Allergy to other foods; Z79.899 Other long term (current) drug therapy; Z68.23 Body mass index [BMI] 23.0-23.9, adult

== ENCOUNTER → 2020-11-18 | Outpatient (CLI) | payer OTHER ==
[~2020-11-18] MED LIST changes: +MIRTAZAPINE15 M2 PO; +RISPERIDONE0.25 M2 PO; +RISPERIDONE0.5 MG PO; +RIVASTIGMINE TAR3 M1 PO; +VITAMIN D3125 MC1 PO; +XARELTO1 EACH PO
[2020-11-18 08:53] LABS: BASO % 0.7 % (0.0-1.0); EOS # 0.1 10*3/uL (0.0-0.4); EOS % 2.7 % (1.0-4.0); HEMATOCRIT 32.6 % (37.0-47.0); LYMPH # 0.9 10*3/uL (1.3-4.4); LYMPH % 21.7 % (27.0-41.0); MEAN CELL VOLUME 80.3 fl (81.0-99.0); MEAN CORPUSCULAR HGB 22.7 pg (27.0-31.0); MEAN CORPUSCULAR HGB CONC 28.2 g/dl (33.0-37.0); MEAN PLATELET VOLUME 9.5 fl (9.6-12.3); MONO # 0.3 10*3/uL (0.1-1.0); MONO % 7.2 % (3.0-9.0); NEUT # 2.8 10*3/uL (2.3-7.9); NEUT % 67.5 % (47.0-73.0); PLATELET COUNT AUTOMATED 279 10*3/uL (130-400); RED BLOOD COUNT 4.06 10*6/uL (4.10-5.10); RED CELL DISTRI WIDTH 17.2 % (0-14.5); WHITE BLOOD COUNT 4.1 10*3/uL (4.8-10.8)
[2020-11-18 09:27] LABS: ALBUMIN 3.4 gm/dl (3.1-4.5); BUN 13 mg/dl (7-24); CHLORIDE 110 mmol/L (98-107); POTASSIUM 3.6 mmol/L (3.5-5.1); SODIUM 141 mmol/L (136-145)
[2020-11-18 09:36] LABS: ALKALINE PHOSPHATASE 84 U/L (45-117); BILIRUBIN, DIRECT < 0.1 mg/dL (0.0-0.2); CHOLESTEROL 209 mg/dL (<200); CREATININE 0.83 mg/dL (0.55-1.02); HDL CHOLESTEROL 72 mg/dl (40-60); LDL CHOLESTEROL 113 mg/dL (9-159); SGOT/AST 9 IU/L (3-35); SGPT/ALT 12 U/L (12-78); THYROXINE (T4) TOTAL 7.9 ug/dl (4.8-13.9); TOTAL PROTEIN 6.9 gm/dL (6.4-8.2); TRIGLYCERIDES 118 mg/dl (<150); VLDL CHOLESTEROL 24 mg/dL (6-40)
== END | disposition home or self-care (01) ==
LOC: LAB 08:04
PROVIDERS: ATTEND Family Medicine
DX: E03.9 Hypothyroidism, unspecified (principal); E55.9 Vitamin D deficiency, unspecified; R73.9 Hyperglycemia, unspecified

== ENCOUNTER 2020-12-20 17:08 | Emergency (ER) | payer OTHER ==
[~2020-12-20] VITALS: Ht 142.2 cm; Wt 52.2 kg
[2020-12-20 17:31] LABS: BASO % 0.8 % (0.0-1.0); EOS # 0.1 10*3/uL (0.0-0.4); EOS % 2.8 % (1.0-4.0); HEMATOCRIT 35.6 % (37.0-47.0); LYMPH # 1.1 10*3/uL (1.3-4.4); LYMPH % 20.6 % (27.0-41.0); MEAN CELL VOLUME 79.8 fl (81.0-99.0); MEAN CORPUSCULAR HGB CONC 27.5 g/dl (33.0-37.0); MEAN PLATELET VOLUME 8.9 fl (9.6-12.3); MONO # 0.4 10*3/uL (0.1-1.0); MONO % 8.6 % (3.0-9.0); NEUT # 3.4 10*3/uL (2.3-7.9); PLATELET COUNT AUTOMATED 343 10*3/uL (130-400); RED BLOOD COUNT 4.46 10*6/uL (4.10-5.10); RED CELL DISTRI WIDTH 17.1 % (0-14.5); WHITE BLOOD COUNT 5.1 10*3/uL (4.8-10.8)
[2020-12-20 17:46] LABS: ALBUMIN 3.5 gm/dl (3.1-4.5); ALKALINE PHOSPHATASE 88 U/L (45-117); BUN 14 mg/dl (7-24); CHLORIDE 108 mmol/L (98-107); CREATININE 0.95 mg/dL (0.55-1.02); POTASSIUM 3.9 mmol/L (3.5-5.1); SGOT/AST 8 IU/L (3-35); SGPT/ALT 14 U/L (12-78); SODIUM 139 mmol/L (136-145); TOTAL PROTEIN 7.4 gm/dL (6.4-8.2)
[2020-12-20 17:58] LABS: BILIRUBIN Negative (Negative); BLOOD Negative (Negative); CLARITY Clear (Clear); COLOR Yellow (Yellow); GLUCOSE Negative (Negative); KETONE Negative (Negative); LEUKO ESTERASE Trace (Negative); NITRITE Negative (Negative); SPECIFIC GRAVITY 1.015 (1.001-1.030); UROBILINOGEN 0.2 E.U./dl (0.0-1.0)
[2020-12-20 18:03] LABS: BACTERIA TRACE; EPITHELIAL CELLS 0-2; MUCOUS TRACE; RBC 0-2 rbc/hpf (0-2)
[2020-12-20] MEDS ORDERED: LEVOFLOXACIN250 M2 PO (18:12)
== END 2020-12-20 19:14 | disposition home or self-care (01) ==
LOC: ED 17:08
PROVIDERS: Student in an Organized Health Care Education/Training Program
DX: N39.0 Urinary tract infection, site not specified (principal); N93.9 Abnormal uterine and vaginal bleeding, unspecified; Z88.0 Allergy status to penicillin; Z88.8 Allergy status to other drugs, medicaments and biological substances; Z91.048 Other nonmedicinal substance allergy status; Z91.041 Radiographic dye allergy status; Z91.011 Allergy to milk products; Z91.013 Allergy to seafood; Z91.012 Allergy to eggs; Z91.018 Allergy to other foods; Z79.899 Other long term (current) drug therapy; Z90.89 Acquired absence of other organs; Z96.652 Presence of left artificial knee joint; Z90.10 Acquired absence of unspecified breast and nipple

== ENCOUNTER → 2021-01-16 | Outpatient (CLI) | payer OTHER ==
[~2021-01-16] MED LIST changes: +LEVOFLOXACIN250 M2 PO
== END | disposition home or self-care (01) ==
LOC: US 01-12 13:00
PROVIDERS: ATTEND Obstetrics & Gynecology
DX: N95.0 Postmenopausal bleeding (principal)

== ENCOUNTER → 2021-03-11 | Outpatient (CLI) | payer OTHER ==
[2021-03-11 12:46] LABS: IRON 26 ug/dL (50-170); TOTAL IRON BINDING CAPACITY 551 ug/dl (250-450)
== END | disposition home or self-care (01) ==
LOC: LAB 12:08
PROVIDERS: ATTEND Internal Medicine Hematology & Oncology
DX: C50.412 Malignant neoplasm of upper-outer quadrant of left female breast (principal); S32.10XD Unspecified fracture of sacrum, subsequent encounter for fracture with routine healing; M54.5 Low back pain; D50.9 Iron deficiency anemia, unspecified; X58.XXXD Exposure to other specified factors, subsequent encounter

== ENCOUNTER → 2021-08-03 | Outpatient (CLI) | payer OTHER ==
[2021-08-03 09:26] LABS: BASO % 0.6 % (0.0-1.0); EOS # 0.2 10*3/uL (0.0-0.4); EOS % 3.6 % (1.0-4.0); HEMATOCRIT 39.8 % (37.0-47.0); LYMPH # 0.8 10*3/uL (1.3-4.4); MEAN CELL VOLUME 95.7 fl (81.0-99.0); MEAN CORPUSCULAR HGB CONC 31.4 g/dl (33.0-37.0); MEAN PLATELET VOLUME 9.1 fl (9.6-12.3); MONO # 0.3 10*3/uL (0.1-1.0); MONO % 6.7 % (3.0-9.0); NEUT # 3.3 10*3/uL (2.3-7.9); NEUT % 71.5 % (47.0-73.0); PLATELET COUNT AUTOMATED 233 10*3/uL (130-400); RED BLOOD COUNT 4.16 10*6/uL (4.10-5.10); RED CELL DISTRI WIDTH 14.6 % (0-14.5); WHITE BLOOD COUNT 4.7 10*3/uL (4.8-10.8)
[2021-08-03 09:49] LABS: ALBUMIN 3.5 gm/dl (3.1-4.5); ALKALINE PHOSPHATASE 103 U/L (45-117); BUN 15 mg/dl (7-24); CHLORIDE 110 mmol/L (98-107); CHOLESTEROL 223 mg/dL (<200); CREATININE 0.81 mg/dL (0.55-1.02); LDL CHOLESTEROL 138 mg/dL (9-159); SGOT/AST 17 IU/L (3-35); SGPT/ALT 21 U/L (12-78); SODIUM 141 mmol/L (136-145); THYROXINE (T4) TOTAL 8.9 ug/dl (4.8-13.9); TOTAL PROTEIN 7.3 gm/dL (6.4-8.2); TRIGLYCERIDES 114 mg/dl (<150)
== END | disposition home or self-care (01) ==
LOC: LAB 08:59
PROVIDERS: ATTEND Family Medicine
DX: F31.9 Bipolar disorder, unspecified (principal); E03.9 Hypothyroidism, unspecified; R73.9 Hyperglycemia, unspecified; E55.9 Vitamin D deficiency, unspecified

== ENCOUNTER → 2021-08-13 | Outpatient (CLI) | payer OTHER | END | disposition home or self-care (01) | LOC: RAD 11:14 | PROVIDERS: ATTEND Family Medicine | DX: M51.36 Other intervertebral disc degeneration, lumbar region (principal); M48.061 Spinal stenosis, lumbar region without neurogenic claudication; M25.511 Pain in right shoulder; M54.50 Low back pain, unspecified; M25.78 Osteophyte, vertebrae; M85.811 Other specified disorders of bone density and structure, right shoulder ==

== ENCOUNTER → 2022-02-12 | Outpatient (CLI) | payer OTHER ==
[2022-02-12 14:05] LABS: BASO % 0.4 % (0.0-1.0); EOS # 0.1 10*3/uL (0.0-0.4); EOS % 1.1 % (1.0-4.0); HEMATOCRIT 41.3 % (37.0-47.0); LYMPH # 0.9 10*3/uL (1.3-4.4); LYMPH % 15.9 % (27.0-41.0); MEAN CELL VOLUME 88.6 fl (81.0-99.0); MEAN CORPUSCULAR HGB CONC 32.7 g/dl (33.0-37.0); MEAN PLATELET VOLUME 9.5 fl (9.6-12.3); MONO # 0.3 10*3/uL (0.1-1.0); MONO % 5.6 % (3.0-9.0); NEUT # 4.1 10*3/uL (2.3-7.9); NEUT % 76.8 % (47.0-73.0); PLATELET COUNT AUTOMATED 308 10*3/uL (130-400); RED BLOOD COUNT 4.66 10*6/uL (4.10-5.10); RED CELL DISTRI WIDTH 12.7 % (0-14.5); WHITE BLOOD COUNT 5.4 10*3/uL (4.8-10.8)
[2022-02-12 14:21] LABS: IRON 38 ug/dL (50-170)
[2022-02-12 14:26] LABS: ALKALINE PHOSPHATASE 88 U/L (45-117); BUN 11 mg/dl (7-24); CHLORIDE 110 mmol/L (98-107); CHOLESTEROL 175 mg/dL (<200); CREATININE 0.62 mg/dL (0.55-1.02); LDL CHOLESTEROL 100 mg/dL (9-159); POTASSIUM 3.6 mmol/L (3.5-5.1); SGOT/AST 17 IU/L (3-35); SGPT/ALT 22 U/L (12-78); SODIUM 139 mmol/L (136-145); THYROXINE (T4) TOTAL 15.1 ug/dl (4.8-13.9); TOTAL PROTEIN 6.9 gm/dL (6.4-8.2); TRIGLYCERIDES 164 mg/dl (<150)
[2022-02-12 14:38] LABS: THYROID STIM HORMONE (HS) < 0.005 uIU/ml (0.358-4.75)
== END | disposition home or self-care (01) ==
LOC: LAB 13:28
PROVIDERS: Internal Medicine Hematology & Oncology; ATTEND Family Medicine
DX: S32.10XA Unspecified fracture of sacrum, initial encounter for closed fracture (principal); M47.812 Spondylosis without myelopathy or radiculopathy, cervical region; M25.78 Osteophyte, vertebrae; E78.00 Pure hypercholesterolemia, unspecified; R53.83 Other fatigue; Z79.899 Other long term (current) drug therapy; E55.9 Vitamin D deficiency, unspecified; R53.82 Chronic fatigue, unspecified; C50.412 Malignant neoplasm of upper-outer quadrant of left female breast; D50.9 Iron deficiency anemia, unspecified; X58.XXXA Exposure to other specified factors, initial encounter; Y93.89 Activity, other specified; Y92.89 Other specified places as the place of occurrence of the external cause; Y99.8 Other external cause status

== ENCOUNTER → 2022-02-16 | Outpatient (CLI) | payer OTHER | END | disposition home or self-care (01) | LOC: LAB 12:33 | PROVIDERS: ATTEND Family Medicine | DX: E55.9 Vitamin D deficiency, unspecified (principal); E78.00 Pure hypercholesterolemia, unspecified; R53.83 Other fatigue; R17 Unspecified jaundice; R11.0 Nausea; Z79.899 Other long term (current) drug therapy ==

== ENCOUNTER → 2022-04-02 | Outpatient (CLI) | payer OTHER ==
[2022-04-02 14:05] LABS: THYROXINE (T4) TOTAL 5.8 ug/dl (4.8-13.9)
[2022-04-02 14:13] LABS: THYROID STIM HORMONE (HS) 4.14 uIU/ml (0.358-4.75)
== END | disposition home or self-care (01) ==
LOC: LAB 12:57
PROVIDERS: ATTEND Family Medicine
DX: E03.9 Hypothyroidism, unspecified (principal); R73.9 Hyperglycemia, unspecified

== ENCOUNTER 2022-05-07 11:24 | Emergency (ER) | payer OTHER ==
[~2022-05-07] VITALS: Ht 142.2 cm; Wt 43.8 kg
[2022-05-07 13:57] LABS: BILIRUBIN Negative (Negative); BLOOD Negative (Negative); CLARITY Clear (Clear); COLOR Yellow (Yellow); GLUCOSE Negative (Negative); KETONE Negative (Negative); LEUKO ESTERASE 3+ (Negative); NITRITE Negative (Negative); SPECIFIC GRAVITY <= 1.005 (1.001-1.030); UROBILINOGEN 0.2 E.U./dl (0.0-1.0)
[2022-05-07 14:13] LABS: BACTERIA 2+; WBC 41-50 wbc/hpf (0-5)
[2022-05-07 14:33] LABS: BASO % 0.4 % (0.0-1.0); EOS # 0.1 10*3/uL (0.0-0.4); EOS % 2.1 % (1.0-4.0); HEMATOCRIT 37.1 % (37.0-47.0); LYMPH # 1.1 10*3/uL (1.3-4.4); LYMPH % 16.5 % (27.0-41.0); MEAN CELL VOLUME 96.4 fl (81.0-99.0); MEAN CORPUSCULAR HGB 30.4 pg (27.0-31.0); MEAN CORPUSCULAR HGB CONC 31.5 g/dl (33.0-37.0); MEAN PLATELET VOLUME 9.1 fl (9.6-12.3); MONO # 0.4 10*3/uL (0.1-1.0); MONO % 6.3 % (3.0-9.0); NEUT % 74.4 % (47.0-73.0); PLATELET COUNT AUTOMATED 225 10*3/uL (130-400); RED BLOOD COUNT 3.85 10*6/uL (4.10-5.10); RED CELL DISTRI WIDTH 14.2 % (0-14.5); WHITE BLOOD COUNT 6.7 10*3/uL (4.8-10.8)
[2022-05-07 14:49] LABS: ALKALINE PHOSPHATASE 88 U/L (45-117); BUN 19 mg/dl (7-24); CHLORIDE 114 mmol/L (98-107); CREATININE 0.67 mg/dL (0.55-1.02); POTASSIUM 4.2 mmol/L (3.5-5.1); SGOT/AST 10 IU/L (3-35); SGPT/ALT 17 U/L (12-78); SODIUM 143 mmol/L (136-145); TOTAL PROTEIN 6.5 gm/dL (6.4-8.2)
== END 2022-05-07 16:34 | disposition home or self-care (01) ==
LOC: ED 11:24
PROVIDERS: Nurse Practitioner Family
DX: M54.50 Low back pain, unspecified (principal); M79.601 Pain in right arm; M25.552 Pain in left hip; M25.551 Pain in right hip; Z79.899 Other long term (current) drug therapy; Z88.0 Allergy status to penicillin; W01.0XXA Fall on same level from slipping, tripping and stumbling without subsequent striking against object, initial encounter; Y93.01 Activity, walking, marching and hiking; Y92.89 Other specified places as the place of occurrence of the external cause; Y99.9 Unspecified external cause status

== ENCOUNTER 2022-05-14 17:11 | Inpatient (IN) | payer OTHER ==
[~2022-05-14] VITALS: Ht 142.2 cm; Wt 45.1 kg
[2022-05-14 17:38] VITALS: BP 122/60
[2022-05-14 18:12] LABS: BASO % 0.4 % (0.0-1.0); EOS # 0.1 10*3/uL (0.0-0.4); EOS % 2.6 % (1.0-4.0); HEMATOCRIT 37.7 % (37.0-47.0); LYMPH % 22.6 % (27.0-41.0); MEAN CELL VOLUME 96.7 fl (81.0-99.0); MEAN CORPUSCULAR HGB 30.5 pg (27.0-31.0); MEAN CORPUSCULAR HGB CONC 31.6 g/dl (33.0-37.0); MEAN PLATELET VOLUME 9.4 fl (9.6-12.3); MONO # 0.4 10*3/uL (0.1-1.0); NEUT % 65.2 % (47.0-73.0); PLATELET COUNT AUTOMATED 261 10*3/uL (130-400); RED CELL DISTRI WIDTH 13.9 % (0-14.5); WHITE BLOOD COUNT 4.6 10*3/uL (4.8-10.8)
[2022-05-14 18:36] LABS: BILIRUBIN Negative (Negative); BLOOD Negative (Negative); CLARITY Clear (Clear); COLOR Yellow (Yellow); GLUCOSE 1+ (Negative); KETONE Negative (Negative); LEUKO ESTERASE 3+ (Negative); NITRITE Positive (Negative); PH 6.5 (4.5-8.0); UROBILINOGEN 0.2 E.U./dl (0.0-1.0)
[2022-05-14 18:43] LABS: BACTERIA 3+; WBC 31-40 wbc/hpf (0-5)
[2022-05-14 18:48] LABS: ALKALINE PHOSPHATASE 89 U/L (45-117); BUN 22 mg/dl (7-24); CHLORIDE 115 mmol/L (98-107); CREATININE 0.81 mg/dL (0.55-1.02); POTASSIUM 3.5 mmol/L (3.5-5.1); SGOT/AST 18 IU/L (3-35); SGPT/ALT 26 U/L (12-78); SODIUM 145 mmol/L (136-145); TOTAL PROTEIN 6.5 gm/dL (6.4-8.2)
[2022-05-14 22:30] VITALS: BP 131/63
[2022-05-14] MEDS ORDERED: LITHIUM CARBON300 MG PO (22:48)
[2022-05-15 05:44] LABS: ALKALINE PHOSPHATASE 81 U/L (45-117); BUN 17 mg/dl (7-24); CHLORIDE 116 mmol/L (98-107); CREATININE 0.69 mg/dL (0.55-1.02); SGOT/AST 19 IU/L (3-35); SGPT/ALT 24 U/L (12-78); SODIUM 142 mmol/L (136-145); TOTAL PROTEIN 6.1 gm/dL (6.4-8.2)
[2022-05-15 05:54] LABS: POTASSIUM 4.2 mmol/L (3.5-5.1)
[2022-05-15 06:29] LABS: BASO % 0.5 % (0.0-1.0); EOS # 0.1 10*3/uL (0.0-0.4); EOS % 2.7 % (1.0-4.0); HEMATOCRIT 37.6 % (37.0-47.0); LYMPH % 25.2 % (27.0-41.0); MEAN CELL VOLUME 98.7 fl (81.0-99.0); MEAN CORPUSCULAR HGB 30.4 pg (27.0-31.0); MEAN CORPUSCULAR HGB CONC 30.9 g/dl (33.0-37.0); MEAN PLATELET VOLUME 9.6 fl (9.6-12.3); MONO # 0.3 10*3/uL (0.1-1.0); MONO % 8.2 % (3.0-9.0); NEUT # 2.6 10*3/uL (2.3-7.9); NEUT % 63.2 % (47.0-73.0); PLATELET COUNT AUTOMATED 227 10*3/uL (130-400); RED BLOOD COUNT 3.81 10*6/uL (4.10-5.10); RED CELL DISTRI WIDTH 13.9 % (0-14.5); WHITE BLOOD COUNT 4.1 10*3/uL (4.8-10.8)
[2022-05-15 08:00] VITALS: BP 129/83
[2022-05-15 12:00] VITALS: BP 149/89
[2022-05-15 16:00] VITALS: BP 141/80
[2022-05-15 20:00] VITALS: BP 139/71
[2022-05-16] VITALS: BP 126/70
[2022-05-16 04:21] VITALS: BP 133/77
[2022-05-16 07:02] LABS: BASO % 0.2 % (0.0-1.0); EOS # 0.1 10*3/uL (0.0-0.4); EOS % 1.7 % (1.0-4.0); HEMATOCRIT 42.4 % (37.0-47.0); LYMPH # 1.1 10*3/uL (1.3-4.4); LYMPH % 20.2 % (27.0-41.0); MEAN CELL VOLUME 96.6 fl (81.0-99.0); MEAN CORPUSCULAR HGB CONC 32.1 g/dl (33.0-37.0); MEAN PLATELET VOLUME 9.4 fl (9.6-12.3); MONO # 0.5 10*3/uL (0.1-1.0); MONO % 8.6 % (3.0-9.0); NEUT # 3.7 10*3/uL (2.3-7.9); NEUT % 69.1 % (47.0-73.0); PLATELET COUNT AUTOMATED 258 10*3/uL (130-400); RED BLOOD COUNT 4.39 10*6/uL (4.10-5.10); RED CELL DISTRI WIDTH 13.7 % (0-14.5); WHITE BLOOD COUNT 5.4 10*3/uL (4.8-10.8)
[2022-05-16 07:18] LABS: CHLORIDE 112 mmol/L (98-107); POTASSIUM 4.2 mmol/L (3.5-5.1); SODIUM 140 mmol/L (136-145)
[2022-05-16 07:23] LABS: ALKALINE PHOSPHATASE 89 U/L (45-117); BUN 19 mg/dl (7-24); CREATININE 0.78 mg/dL (0.55-1.02); SGOT/AST 14 IU/L (3-35); SGPT/ALT 23 U/L (12-78)
[2022-05-16 08:00] VITALS: BP 129/70
[2022-05-16 12:00] VITALS: BP 138/80
[2022-05-16 16:00] VITALS: BP 130/59
[2022-05-16 20:00] VITALS: BP 108/58
[2022-05-17] VITALS: BP 124/73
[2022-05-17 08:00] VITALS: BP 147/76
[2022-05-17 12:00] VITALS: BP 153/88
[2022-05-17 16:00] VITALS: BP 137/80
[2022-05-17 20:00] VITALS: BP 136/76
[2022-05-18] VITALS: BP 116/69
[2022-05-18 07:09] LABS: BASO % 0.3 % (0.0-1.0); EOS # 0.1 10*3/uL (0.0-0.4); EOS % 1.6 % (1.0-4.0); HEMATOCRIT 43.4 % (37.0-47.0); LYMPH % 13.2 % (27.0-41.0); MEAN CELL VOLUME 96.7 fl (81.0-99.0); MEAN CORPUSCULAR HGB 30.7 pg (27.0-31.0); MEAN CORPUSCULAR HGB CONC 31.8 g/dl (33.0-37.0); MEAN PLATELET VOLUME 9.1 fl (9.6-12.3); MONO # 0.7 10*3/uL (0.1-1.0); MONO % 9.3 % (3.0-9.0); NEUT # 5.5 10*3/uL (2.3-7.9); NEUT % 75.2 % (47.0-73.0); PLATELET COUNT AUTOMATED 243 10*3/uL (130-400); RED BLOOD COUNT 4.49 10*6/uL (4.10-5.10); RED CELL DISTRI WIDTH 13.8 % (0-14.5); WHITE BLOOD COUNT 7.3 10*3/uL (4.8-10.8)
[2022-05-18 07:42] LABS: BUN 18 mg/dl (7-24); CHLORIDE 108 mmol/L (98-107); SODIUM 138 mmol/L (136-145)
[2022-05-18 07:45] LABS: ALKALINE PHOSPHATASE 99 U/L (45-117); CREATININE 0.72 mg/dL (0.55-1.02); SGOT/AST 10 IU/L (3-35); SGPT/ALT 20 U/L (12-78); TOTAL PROTEIN 7.3 gm/dL (6.4-8.2)
[2022-05-18 08:00] VITALS: BP 138/81
[2022-05-18 12:00] VITALS: BP 124/79
[2022-05-18 16:00] VITALS: BP 122/70
[2022-05-18 20:00] VITALS: BP 124/77
[2022-05-19] VITALS: BP 153/82
[2022-05-19 07:14] LABS: BASO % 0.3 % (0.0-1.0); EOS # 0.1 10*3/uL (0.0-0.4); EOS % 0.9 % (1.0-4.0); HEMATOCRIT 42.5 % (37.0-47.0); LYMPH # 0.7 10*3/uL (1.3-4.4); LYMPH % 11.1 % (27.0-41.0); MEAN CELL VOLUME 94.7 fl (81.0-99.0); MEAN CORPUSCULAR HGB 30.3 pg (27.0-31.0); MEAN PLATELET VOLUME 9.3 fl (9.6-12.3); MONO # 0.6 10*3/uL (0.1-1.0); MONO % 8.7 % (3.0-9.0); NEUT # 5.2 10*3/uL (2.3-7.9); NEUT % 78.7 % (47.0-73.0); PLATELET COUNT AUTOMATED 261 10*3/uL (130-400); RED BLOOD COUNT 4.49 10*6/uL (4.10-5.10); RED CELL DISTRI WIDTH 13.6 % (0-14.5); WHITE BLOOD COUNT 6.6 10*3/uL (4.8-10.8)
[2022-05-19 07:37] LABS: ALKALINE PHOSPHATASE 96 U/L (45-117); BUN 23 mg/dl (7-24); CHLORIDE 107 mmol/L (98-107); CREATININE 0.86 mg/dL (0.55-1.02); SGOT/AST 17 IU/L (3-35); SGPT/ALT 24 U/L (12-78); SODIUM 138 mmol/L (136-145); TOTAL PROTEIN 7.2 gm/dL (6.4-8.2)
[2022-05-19 08:00] VITALS: BP 124/73
[2022-05-19] MEDS ORDERED: MELATONIN5 M7 PO (11:27)
[2022-05-19] MEDS ORDERED: NEURONTIN300 MG PO (11:27)
[2022-05-19] MEDS ORDERED: CIPRO500 MG PO (11:27)
[2022-05-19 12:00] VITALS: BP 141/80
== END 2022-05-19 13:50 | DRG 689 ==
LOC: ED 17:11 → 5E 19:19 → EDHOLD 19:19 → 5E 21:35
PROVIDERS: Internal Medicine; Student in an Organized Health Care Education/Training Program; ADMIT Internal Medicine; ATTEND Internal Medicine
DX: N39.0 Urinary tract infection, site not specified (principal); G93.41 Metabolic encephalopathy; E44.0 Moderate protein-calorie malnutrition; Z20.822 Contact with and (suspected) exposure to COVID-19; E89.0 Postprocedural hypothyroidism; Z96.652 Presence of left artificial knee joint; J45.909 Unspecified asthma, uncomplicated; K21.9 Gastro-esophageal reflux disease without esophagitis; G62.9 Polyneuropathy, unspecified; M25.511 Pain in right shoulder; E83.41 Hypermagnesemia; D72.810 Lymphocytopenia; B96.20 Unspecified Escherichia coli [E. coli] as the cause of diseases classified elsewhere; R73.9 Hyperglycemia, unspecified; E87.8 Other disorders of electrolyte and fluid balance, not elsewhere classified; Z88.8 Allergy status to other drugs, medicaments and biological substances; Z91.012 Allergy to eggs; Z91.02 Food additives allergy status; Z88.0 Allergy status to penicillin; Z91.013 Allergy to seafood; Z90.13 Acquired absence of bilateral breasts and nipples; Z80.0 Family history of malignant neoplasm of digestive organs; Z80.1 Family history of malignant neoplasm of trachea, bronchus and lung; Z82.3 Family history of stroke; Z85.3 Personal history of malignant neoplasm of breast; Z68.22 Body mass index [BMI] 22.0-22.9, adult

== ENCOUNTER → 2023-07-05 | Day surgery (SDC) | payer MEDICARE ==
[2023-07-04 14:06] VITALS: BP 131/81
[2023-07-04 15:49] LABS: BUN 14 mg/dl (9-23); CHLORIDE 106 mmol/L (98-107)
[2023-07-04 15:58] LABS: VITAMIN D, 25-HYDROXY 44.3 ng/mL (30-100)
[~2023-07-05] VITALS: Wt 48.5 kg
[~2023-07-05] MED LIST changes: +CELEBREX100 MG PO; +CRANBERRY250 MG PO; +CYMBALTA20 M1 PO; +LEVOTHYROXINE50 MCG PO; +MELATONIN5 M7 PO; +NEURONTIN100 MG PO; +PEPCID20 MG PO; +SOLIFENACIN SUCC5 MG PO; +TRAZODONE50 MG PO; +VITAMIN D325 MCG PO
[2023-07-05 13:06] VITALS: BP 107/51
[2023-07-05 16:25] VITALS: BP 106/51
[2023-07-05 16:40] VITALS: BP 115/55
[2023-07-05 16:55] VITALS: BP 113/55
[2023-07-05 17:18] VITALS: BP 115/63
[2023-07-05 17:28] VITALS: BP 115/64
== END | disposition home or self-care (01) ==
LOC: SDC 07-04 14:00
PROVIDERS: Physician Assistant Medical; ATTEND Orthopaedic Surgery
DX: S82.841A Displaced bimalleolar fracture of right lower leg, initial encounter for closed fracture (principal); S82.831A Other fracture of upper and lower end of right fibula, initial encounter for closed fracture; M35.6 Relapsing panniculitis [Weber-Christian]; J45.909 Unspecified asthma, uncomplicated; K44.9 Diaphragmatic hernia without obstruction or gangrene; F41.9 Anxiety disorder, unspecified; F32.A Depression, unspecified; G80.1 Spastic diplegic cerebral palsy; M81.0 Age-related osteoporosis without current pathological fracture; Z98.818 Other dental procedure status; Z98.890 Other specified postprocedural states; X58.XXXA Exposure to other specified factors, initial encounter; Y93.89 Activity, other specified; Y92.89 Other specified places as the place of occurrence of the external cause; Y99.8 Other external cause status

== ENCOUNTER → 2023-07-18 | Outpatient (CLI) | payer MEDICARE | END | disposition home or self-care (01) | LOC: ORTHO 04:27 | PROVIDERS: ATTEND Orthopaedic Surgery | DX: S82.841D Displaced bimalleolar fracture of right lower leg, subsequent encounter for closed fracture with routine healing (principal); M19.071 Primary osteoarthritis, right ankle and foot; X58.XXXD Exposure to other specified factors, subsequent encounter ==

== ENCOUNTER → 2023-08-17 | Outpatient (CLI) | payer MEDICARE | END | disposition home or self-care (01) | LOC: ORTHO 02:29 | PROVIDERS: ATTEND Orthopaedic Surgery | DX: S82.841D Displaced bimalleolar fracture of right lower leg, subsequent encounter for closed fracture with routine healing (principal); M19.071 Primary osteoarthritis, right ankle and foot; X58.XXXD Exposure to other specified factors, subsequent encounter ==